=== PATIENT | male | born 1975 | race Caucasian/White ===

== ENCOUNTER 2018-02-24 15:20 | Inpatient (IN) | payer OTHER ==
[2018-02-24 16:51] VITALS: BMI 28.2
[2018-02-24] MEDS ORDERED: MAGNESIUM CITRATE 300 ML BOTTLE PO PRN (18:43)
[2018-02-24] MEDS ORDERED: guaiFENesin/D-METHORPHAN HB 10 ML UNIT-DOSE CUPS PO PRN (18:43)
[2018-02-24] MEDS ORDERED: chlordiazePOXIDE HCL 25 MG CAPSULE PO PRN (18:43)
[2018-02-24] MEDS ORDERED: MAG HYDROX/AL HYDROX/SIMETH 30 ML UNIT-DOSE CUP PO PRN (18:43)
[2018-02-24] MEDS ORDERED: ACETAMINOPHEN 325 MG TABLET (FP) PO PRN (18:43)
[2018-02-24] MEDS ORDERED: chlordiazePOXIDE HCL 25 MG CAPSULE PO ONE (18:43)
[2018-02-24] MEDS ORDERED: P-EPHED 60MG/TRIPROLIDI 2.5MG TABLET PO PRN (18:43)
[2018-02-24] MEDS ORDERED: MENTHOL/PHENOL 1 EACH UD MM PRN (18:43)
[2018-02-24] MEDS ORDERED: hydrOXYzine PAMOATE 50 MG CAPSULE (FP) PO PRN (18:43)
[2018-02-24] MEDS ORDERED: ALBUTEROL SO4 18 GM HFA INHALER IH PRN (18:44)
--- NOTE | 2018-02-24 18:52 | HP ---
CIWA Score - CIWA Score Nausea/Vomitin Muscle Tremors: 3 Anxiety: 3 Agitation: 3 Paroxysmal Sweats: 3 Orientation: 0-Oriented Tacttile Disturbances: 1-Very Mild Itch/Numbness Auditory Disturbances: 0-None Visual Disturbances: 0-None Headache: 1-Very Mild CIWA-Ar Total Score: 17 Admission [facility] Chief Complaint: alcohol withdrawal sx Allergies/Adverse Reactions: Allergies Allergy/AdvReac Type Severity Reaction Status Date / Time chicken derived Allergy Severe Rash Verified 02/24/18 17:31 History of Present Illness: 42 yo m with h/o OUD on MMTP 30mg daily, ldm yesterday confirmed requesting inpatteint detoxficaiton from alcohol reprots alchol withdrwal sx when he does not drink and had alcohol withdrawal seizures 6 months ago. no smoking but also has cocaine dependence. PMHX Hep c+, no treatment, HTN, asthma, bipolar do not taking meds thristyno si at thsi time, no h/o DTS. Exam Limitations: No Limitations - Ebola screening Have you traveled outside of the country in the last 21 days: No Have you had contact with anyone from an Ebola affected area: No Have you been sick,other than usual withdrawal symptoms: No Do you have a fever: No - Review of Systems Constitutional: Chills, Diaphoresis, Night Sweats, Changes in sleep, Unintentional Wgt. Loss EENT: reports: Tearing, Nose Congestion Respiratory: reports: No Symptoms reported Cardiac: reports: No Symptoms Reported GI: reports: No Symptoms Reported : reports: No Symptoms Reported Musculoskeletal: reports: Back Pain, Joint Pain, Muscle Pain Integumentary: reports: Flushing, Sweating Neuro: reports: Headache, Numbness, Tingling, Tremors Endocrine: reports: Increased Thirst Hematology: reports: No Symptoms Reported Psychiatric: reports: Judgement Intact, Mood/Affect Appropiate, Orientated x3, Anxious, Depressed Other Systems: Reviewed and Negative Patient History - Patient Medical History Hx Anemia: No Hx Asthma: Yes (Pt is on MDI.) Hx Chronic Obstructive Pulmonary Disease (COPD): No Hx Cancer: No Hx Cardiac Disorders: No Hx Congestive Heart Failure: No Hx Hypertension: Yes (on meds.) Hx Hypercholesterolemia: No Hx Pacemaker: No HX Cerebrovascular Accident: No Hx Seizures: Yes (etoh related last 6 months ago.) Hx Dementia: No Hx Diabetes: No Hx Gastrointestinal Disorders: No Hx Liver Disease: No Hx Genitourinary Disorders: No Hx Sexually Transmitted Disorders: No Hx Renal Disease (ESRD): No Hx Thyroid Disease: No Hx Human Immunodeficiency Virus (HIV): No Hx Hepatitis C: No Hx Depression: Yes Hx Suicide Attempt: No Hx Schizophrenia: No - Patient Surgical History Past Surgical History: No Hx Neurologic Surgery: No Hx Cataract Extraction: No Hx Cardiac Surgery: No Hx Lung Surgery: No Hx Breast Surgery: No Hx Breast Biopsy: No Hx Abdominal Surgery: No Hx Appendectomy: Yes (20 YRS AGO.) Hx Cholecystectomy: No Hx Genitourinary Surgery: No Hx Section: No Hx Orthopedic Surgery: No Hx Hysterectomy: No Anesthesia Reaction: No - PPD History Previous Implant?: Yes Documented Results: Negative w/o proof Implanted On Prior R Admission?: Yes Date: 10/05/12 PPD to be Administered?: Yes - Reproductive History Patient is a Female of Child Bearing Age (11 -55 yrs old): No Patient : No - Smoking Cessation Smoking history: Never smoked Have you smoked in the past 12 months: No Hx Chewing Tobacco Use: No Initiated information on smoking cessation: No 'Breaking Loose' booklet given: 02/24/18 - Substance & Tx. History Hx Alcohol Use: Yes Hx Substance Use: Yes Substance Use Type: Alcohol, Cocaine, Heroin, Opiates, Prescribed, Tranquilizers Hx Substance Use Treatment: Yes (mmtp, [facility] detox in past) - Substances Abused Alcohol Route: Oral Frequency: Daily Amount used: 1 PINT VODKA Age of first use: 16 Date of Last Use: 02/23/18 Cocaine Route: Injection Frequency: Daily Amount used: 8 BAGS Age of first use: 17 Date of Last Use: 02/24/18 Heroin Route: Injection Frequency: Daily Amount used: 9 BAGS Age of first use: 17 Date of Last Use: 02/24/18 Family Disease History - Family Disease History Family Disease History: Heart Disease: Mother, Other: Father (alcohoic deaf) Admission Physical Exam BHS - Vital Signs Vital Signs: Vital Signs - 24 hr 02/24/18 16:48 Temperature 98.0 F Pulse Rate 70 Respiratory 21 Rate Blood Pressure 140/80 - Physical General Appearance: Yes: No Apparent Distress, Nourished, Appropriately Dressed , Disheveled, Mild Distress, Tremorous, Irritable, Sweating, Anxious HEENTM: Yes: EOMI, Hearing grossly Normal, Normocephalic, Normal Voice, HALLIE, Pharynx Normal Respiratory: Yes: Within Normal Limits, Chest Non-Tender, Lungs Clear, Normal Breath Sounds, No Respiratory Distress, No Accessory Muscle Use Neck: Yes: Within Normal Limits, No masses,lesions,Nodules, Supple, Trachea in good position Breast: Yes: Breast Exam Deferred Cardiology: Yes: Within Normal Limits, Regular Rhythm, Regular Rate, S1, S2 Abdominal: Yes: Within Normal Limits, Normal Bowel Sounds, Non Tender, Flat, Soft, Increased Bowel Sounds Genitourinary: Yes: Within Normal Limits Back: Yes: Muscle Spasm Musculoskeletal: Yes: full range of Motion, Gait Steady, Pelvis Stable, Back pain Extremities: Yes: Normal Capillary Refill, Normal Range of Motion, Non-Tender, Tremors Neurological: Yes: 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, Fully Oriented, Alert, Motor Strength 5/5, Normal Response, Depressed Affect Integumentary: Yes: Normal Color, Warm, Diaphoresis, Moist, Track Fritz (active heroin idu no infection noted, arms) Lymphatic: Yes: Within Normal Limits - Addiitonal Findings: withdrawal sx - Diagnostic (1) Asthma Current Visit: No Status: Active (2) Bipolar disorder Current Visit: No Status: Active (3) Cocaine dependence Current Visit: No Status: Active (4) Essential hypertension Current Visit: No Status: Active (5) Hepatitis C carrier Current Visit: No Status: Active (6) Syncope Current Visit: No Status: Active (7) Weight decreased Current Visit: No Status: Active (8) Opioid dependence on agonist therapy Current Visit: Yes Status: Acute (9) Alcohol dependence with uncomplicated withdrawal Current Visit: Yes Status: Acute (10) Intravenous drug user Current Visit: Yes Status: Acute Cleared for Admission S - Detox or Rehab [facility] Level of Care: Medically Managed Detox Regimen/Protocol: Valium [facility] Breath Alcohol Content Breath Alcohol Content: 0 Urine Drug Screen - Results Drug Screen Negative: No Urine Drug Screen Results: MARIBEL-Cocaine, OPI-Opiates, BZO-Benzodiazepines, MTD- Methadone
[2018-02-24] MEDS ORDERED: diazePAM 5 MG TABLET PO ONE (18:56)
[2018-02-24] MEDS ORDERED: diazePAM 5 MG TABLET PO PRN (18:56)
--- NOTE | 2018-02-24 19:55 | PN ---
[facility] Progress Note Note: Patient did not received his methadone dose today of 30 mg. Dose verify by Neda Bhakta RN with Ms James LPN. Vital Signs Temperature 98.0 F 02/24/18 16:48 Pulse Rate 70 02/24/18 16:48 Respiratory Rate 21 02/24/18 16:48 Blood Pressure 140/80 02/24/18 16:48 O2 Sat by Pulse Oximetry (%) One time dose for today 30mg order Continue to monitor
[2018-02-24] MEDS ORDERED: METHADONE HCL 10 MG TABLET PO ONE (20:00)
[2018-02-24] MEDS: amLODIPine BESYLATE 10 MG TABLET (FP) PO SCH (20:56)
[2018-02-24] MEDS: FERROUS SO4 325 MG TABLET (FP) PO SCH (20:56)
[2018-02-24] MEDS ORDERED: ZOLPIDEM TARTRATE 5 MG TABLET PO SCH (22:00)
[2018-02-24] MEDS ORDERED: MELATONIN 5 MG TABLETS PO PRN (22:00)
[2018-02-24] MEDS: THIAMINE HCL 100 MG TABLET (FP) PO SCH (22:54)
[2018-02-24] MEDS: diazePAM 5 MG TABLET PO SCH (22:55)
[2018-02-24] MEDS ORDERED: chlordiazePOXIDE HCL 25 MG CAPSULE PO SCH (23:00)
[2018-02-24] MEDS: MAGNESIUM OXIDE 400 MG TABLET (FP) PO SCH (23:11)
[2018-02-25] MEDS: MAGNESIUM HYDROX 2400MG/30ML ORAL SUSPENSION 30 ML CUP PO PRN (02:03)
[2018-02-25 05:07] LABS: URINE APPEARANCE CLEAR; URINE BILIRUBIN NEGATIVE (<2.0 mg/dL); URINE BLOOD NEGATIVE (NEGATIVE); URINE COLOR LTYELLOW; URINE GLUCOSE (UA) NEGATIVE (NEGATIVE); URINE KETONE NEGATIVE (NEGATIVE); URINE LEUK ESTERASE NEGATIVE (NEGATIVE); URINE NITRITE NEGATIVE (NEGATIVE); URINE PROTEIN NEGATIVE (NEGATIVE); URINE UROBILINOGEN NEGATIVE mg/dL (0.2-1.0)
[2018-02-25] MEDS: METHADONE HCL 10 MG TABLET PO SCH (05:29)
[2018-02-25] MEDS: diazePAM 5 MG TABLET PO SCH ×3 (05:29→22:23)
[2018-02-25] MEDS: FERROUS SO4 325 MG TABLET (FP) PO SCH ×3 (07:03→17:32)
[2018-02-25] MEDS ORDERED: ZOLPIDEM TARTRATE 10 MG TABLET (PARK CARE ONLY) PO PRN (08:15)
--- NOTE | 2018-02-25 09:03 | CONSULT ---
[facility] Psychiatric Consult - Data Date of interview: 02/25/18 Admission source: [facility] Identifying data: This is 42 yearts old male, , father of three, homeless , unemployed, on SSI seeking detox from Heroin, Cocaine, Alcohol, patient on MMTP 30mg per day as well. Substance Abuse History: Smoking history: Never smoked. Have you smoked in the past 12 months: No. Hx Chewing Tobacco Use: No. Initiated information on smoking cessation: No. 'Breaking Loose' booklet given: 02/24/18. - Substance & Tx. History. Hx Alcohol Use: Yes. Hx Substance Use: Yes. Substance Use Type : Alcohol, Cocaine, Heroin, Opiates, Prescribed, Tranquilizers. Hx Substance Use Treatment: Yes (mmtp, [facility] detox in past). - Substances Abused. Alcohol. Route: Oral. Frequency: Daily. Amount used: 1 PINT VODKA. Age of first use: 16. Date of Last Use: 02/23/18. Cocaine. Route: Injection. Frequency: Daily. Amount used: 8 BAGS. Age of first use: 17. Date of Last Use : 02/24/18. Heroin. Route: Injection. Urine Drug Screen Results: MARIBEL- Cocaine, OPI-Opiates, BZO-Benzodiazepines, MTD-MethadoneFrequency: Daily. Amount used: 9 BAGS. Age of first use: 17. Date of Last Use: 02/24/18 Medical History: Asthma, HTN, HepC+, Weight loss history, Syncope history Psychiatric History: Patient reportsd history of Bipolar disorder, reports most recent psychiatric admission on 2017 at [facility] for safety, reports taking prior to admission: Ambien 10mg po qhs. Seroquel 300mg po qhs. Zyprexa 20mg po qhs. Depakote 500mg po qhs. Patient agrees to tryb Seroquel 150mg po qhs for not to be oversedated. Denies suicidal, homicidal history. Physical/Sexual Abuse/Trauma History: Denies Additional Comment: Urine Drug Screen Results: MARIBEL-Cocaine, OPI-Opiates, BZO- Benzodiazepines, MTD-Methadone Mental Status Exam - Mental Status Exam Alert and Oriented to: Person Cognitive Function: Fair Patient Appearance: Unkempt Mood: Angry Affect: Flat Patient Behavior: Sedated Speech Pattern: Delayed Voice Loudness: Mildly Soft/Quiet Thought Process: Circumstantial Thought Disorder: Being Controlled Hallucinations: Denies Suicidal Ideation: Denies Homicidal Ideation: Denies Insight/Judgement: Fair Sleep: Difficulty falling asleep Appetite: Weight gain Muscle strength/Tone: Mild Hypotonicity Gait/Station: Shuffling Additional Comments: Seroquel 300mg po qhs. Zyprexa 20mg po qhs. Depakote 500mg po qhs Psychiatric Findings - Problem List (Peggs 1, 2,3) (1) Drug-induced mood disorder Current Visit: Yes Status: Acute (2) Alcohol dependence with uncomplicated withdrawal Current Visit: Yes Status: Acute (3) Opioid dependence on agonist therapy Current Visit: Yes Status: Acute (4) Bipolar disorder Current Visit: No Status: Active (5) Cocaine dependence Current Visit: No Status: Active (6) Weight decreased Current Visit: No Status: Active - Initial Treatment Plan Initial Treatment Plan: Seroquel 150mg po qhs. Zyprexa 20mg po qhs. Depakote 500mg po qhs. Depakote blood level
[2018-02-25 10:09] LABS: HEMATOCRIT 34.5 % (35.4-49); HEMOGLOBIN 11.4 GM/dL (11.7-16.9); MCH 26.3 pg (25.7-33.7); MCHC 33.1 g/dl (32.0-35.9); MEAN CELL VOLUME 79.5 fl (80-96); MEAN PLT VOLUME 8.6 fl (7.5-11.1); PLATELET COUNT 212 K/MM3 (134-434); RBC 4.34 M/mm3 (4.00-5.60); RDW 15.9 % (11.9-15.9); WHITE BLOOD COUNT 8.2 K/mm3 (4.0-10.0)
--- NOTE | 2018-02-25 10:13 | PN ---
[facility] CIWA - CIWA Score Nausea/Vomitin-Mild Nausea/No Vomiting Muscle Tremors: 4-Moderate,w/Arms Extend Anxiety: 4-Mod. Anxious/Guarded Agitation: 4-Moderately Restless Paroxysmal Sweats: 1-Minimal Palms Moist Orientation: 0-Oriented Tacttile Disturbances: 0-None Auditory Disturbances: 0-None Visual Disturbances: 0-None Headache: 0-None Present CIWA-Ar Total Score: 14 BHS Progress Note (SOAP) Subjective: tremor sweat anxiety restlessness Objective: 02/25/18 10:14 Vital Signs Temperature 97.9 F 02/25/18 09:42 Pulse Rate 89 02/25/18 09:42 Respiratory Rate 16 02/25/18 09:42 Blood Pressure 137/79 02/25/18 09:42 O2 Sat by Pulse Oximetry (%) Laboratory Last Values WBC 8.2 K/mm3 (4.0-10.0) 02/25/18 07:00 RBC 4.34 M/mm3 (4.00-5.60) 02/25/18 07:00 Hgb 11.4 GM/dL (11.7-16.9) L 02/25/18 07:00 Hct 34.5 % (35.4-49) L 02/25/18 07:00 MCV 79.5 fl (80-96) L 02/25/18 07:00 MCH 26.3 pg (25.7-33.7) 02/25/18 07:00 MCHC 33.1 g/dl (32.0-35.9) 02/25/18 07:00 RDW 15.9 % (11.9-15.9) D 02/25/18 07:00 Plt Count 212 K/MM3 (134-434) D 02/25/18 07:00 MPV 8.6 fl (7.5-11.1) 02/25/18 07:00 Urine Color Ltyellow 02/25/18 00:20 Urine Appearance Clear 02/25/18 00:20 Urine pH 6.0 (5.0-8.0) 02/25/18 00:20 Ur Specific [place] 1.013 (1.001-1.035) 02/25/18 00:20 Urine Protein Negative (NEGATIVE) 02/25/18 00:20 Urine Glucose (UA) Negative (NEGATIVE) 02/25/18 00:20 Urine Ketones Negative (NEGATIVE) 02/25/18 00:20 Urine Blood Negative (NEGATIVE) 02/25/18 00:20 Urine Nitrite Negative (NEGATIVE) 02/25/18 00:20 Urine Bilirubin Negative (<2.0 mg/dL) 02/25/18 00:20 Urine Urobilinogen Negative mg/dL (0.2-1.0) 02/25/18 00:20 Ur Leukocyte Esterase Negative (NEGATIVE) 02/25/18 00:20 lab noted Assessment: 02/25/18 10:14 withdrawal sx Plan: withdrawal sx
[2018-02-25] MEDS: MAGNESIUM OXIDE 400 MG TABLET (FP) PO SCH ×2 (10:39→22:07)
[2018-02-25] MEDS: amLODIPine BESYLATE 10 MG TABLET (FP) PO SCH (10:39)
[2018-02-25] MEDS: PRENATAL VITAMINS W/ FOLIC ACID TABLET (FP) PO SCH (10:39)
[2018-02-25 10:43] LABS: BLOOD UREA NITROGEN 23 mg/dL (7-18); CHLORIDE 104 mmol/L (98-107); POTASSIUM 3.9 mmol/L (3.5-5.1); SODIUM 136 mmol/L (136-145)
[2018-02-25 10:54] LABS: ALBUMIN 3.7 g/dl (3.4-5.0); ALK PHOS 87 U/L (45-117); ANION GAP 3 (8-16); BILIRUBIN,TOTAL 0.2 mg/dL (0.2-1.0); CALCIUM 8.9 mg/dL (8.5-10.1); CO2 29 mmol/L (21-32); CREATININE 1.2 mg/dL (0.7-1.3); GLUCOSE,RANDOM 117 mg/dL (74-106); SGOT/AST 39 U/L (15-37); SGPT/ALT 47 U/L (12-78); TOT PROT 7.2 g/dl (6.4-8.2)
--- NOTE | 2018-02-25 13:06 | EKG ---
Test Reason : Blood Pressure : / mmHG Vent. Rate : 081 BPM Atrial Rate : 081 BPM P-R Int : 160 ms QRS Dur : 098 ms QT Int : 392 ms P-R-T Axes : 064 070 032 degrees QTc Int : 455 ms NORMAL SINUS RHYTHM NONSPECIFIC T WAVE ABNORMALITY ABNORMAL ECG NO PREVIOUS ECGS AVAILABLE Confirmed by RYLEE BRAMBILA MD ([id number]) on 02/25/2018 1:06:23 PM Referred By: Confirmed By:RYLEE BRAMBILA MD
--- NOTE | 2018-02-25 17:44 | PN ---
[facility] Progress Note Note: Psychiatric nurse practitioner note: Newspaper Photojournalist received called from RN concerning patient's oversedation on the unit. Pt. appears lethargic, observed sleeping on the nurses station, on chairs, unable to keep eyes open and taking enviromental cleaning products into his room. Ammonia level ordered, results- 39.25. Psychotropic medications reviewed. Dr. Banda's note read and appreciated. Patient was ordered Depakote 500mg qhs + Seroquel 150mg qhs + Zyprexa 20mg qhs. Seroquel dose was already titrated downwards but will be lowered again due to patient's oversedation. Medications to be decreased to the following doses: Depakote 250mg qhs + seroquel 50mg + zyprexa 5mg qhs to be ordered. Nurses informed of decrease of medication. Medication to be titrated upwards depending on patient' s response to current medications. Will continue to monitor.
[2018-02-25] MEDS ORDERED: BENZOCAINE 28 GM HEMORRHOIDAL OINTMENT PR PRN (18:17)
[2018-02-25] MEDS: LACTULOSE 20 GM/30 ML UDC (FOR ORAL USE ONLY) PO PRN (18:59)
[2018-02-25] MEDS ORDERED: DIVALPROEX SODIUM 500 MG TABLET E.C. PO SCH ×2 (22:00)
[2018-02-25] MEDS ORDERED: OLANZapine 10 MG TABLET PO SCH ×2 (22:00)
[2018-02-25] MEDS ORDERED: QUEtiapine FUMARATE 50 MG TABLET PO SCH ×2 (22:00)
[2018-02-25] MEDS ORDERED: QUEtiapine FUMARATE 300 MG TABLET PO SCH (22:00)
[2018-02-25] MEDS ORDERED: OLANZapine 5 MG TABLET PO SCH (22:06)
[2018-02-25] MEDS: DIVALPROEX SODIUM 250 MG TABLET E.C. PO SCH (22:07)
[2018-02-25] MEDS: THIAMINE HCL 100 MG TABLET (FP) PO SCH (22:07)
[2018-02-25] MEDS ORDERED: chlordiazePOXIDE HCL 25 MG CAPSULE PO SCH (23:00)
[2018-02-26] MEDS: LOPERAMIDE HCL 2 MG CAPSULE PO PRN (01:50)
[2018-02-26] MEDS: IBUPROFEN 400 MG TABLET (FP) PO PRN ×2 (03:11→19:54)
[2018-02-26] MEDS: METHADONE HCL 10 MG TABLET PO SCH (05:18)
[2018-02-26] MEDS ORDERED: cloNIDine HCL 0.1 MG TABLET PO ONE (06:44)
[2018-02-26] MEDS: FERROUS SO4 325 MG TABLET (FP) PO SCH ×3 (07:28→17:48)
--- NOTE | 2018-02-26 07:53 | PN ---
[facility] Progress Note Note: Patient's blood pressure this morning is B/P 170/99. Patient is asymptomatic. Vital Signs Temperature 97.9 F 02/26/18 06:12 Pulse Rate 83 02/26/18 06:12 Respiratory Rate 18 02/26/18 06:12 Blood Pressure 170/99 02/26/18 06:12 O2 Sat by Pulse Oximetry (%) Action: Clonidine 0.1mg tablet oral
[2018-02-26] MEDS: LACTULOSE 20 GM/30 ML UDC (FOR ORAL USE ONLY) PO PRN (10:00)
--- NOTE | 2018-02-26 10:00 | PN ---
S CIWA - CIWA Score Nausea/Vomitin Muscle Tremors: 2 Anxiety: 3 Agitation: 3 Paroxysmal Sweats: 1-Minimal Palms Moist Orientation: 0-Oriented Tacttile Disturbances: 1-Very Mild Itch/Numbness Auditory Disturbances: 1-Very Mild Visual Disturbances: 0-None Headache: 2-Mild CIWA-Ar Total Score: 16 S Progress Note (SOAP) Subjective: ALERT,CONFUSED AT TIME,DROWSY, Objective: 02/26/18 09:57 Vital Signs Temperature 97.9 F 02/26/18 06:12 Pulse Rate 83 02/26/18 06:12 Respiratory Rate 18 02/26/18 06:12 Blood Pressure 170/99 02/26/18 06:12 O2 Sat by Pulse Oximetry (%) Laboratory Last Values WBC 8.2 K/mm3 (4.0-10.0) 02/25/18 07:00 RBC 4.34 M/mm3 (4.00-5.60) 02/25/18 07:00 Hgb 11.4 GM/dL (11.7-16.9) L 02/25/18 07:00 Hct 34.5 % (35.4-49) L 02/25/18 07:00 MCV 79.5 fl (80-96) L 02/25/18 07:00 MCH 26.3 pg (25.7-33.7) 02/25/18 07:00 MCHC 33.1 g/dl (32.0-35.9) 02/25/18 07:00 RDW 15.9 % (11.9-15.9) D 02/25/18 07:00 Plt Count 212 K/MM3 (134-434) D 02/25/18 07:00 MPV 8.6 fl (7.5-11.1) 02/25/18 07:00 Sodium 136 mmol/L (136-145) 02/25/18 07:00 Potassium 3.9 mmol/L (3.5-5.1) 02/25/18 07:00 Chloride 104 mmol/L (98-107) 02/25/18 07:00 Carbon Dioxide 29 mmol/L (21-32) 02/25/18 07:00 Anion Gap 3 (8-16) L 02/25/18 07:00 BUN 23 mg/dL (7-18) H D 02/25/18 07:00 Creatinine 1.2 mg/dL (0.7-1.3) D 02/25/18 07:00 Creat Clearance w eGFR > 60 (>60) 02/25/18 07:00 Random Glucose 117 mg/dL (74-106) H 02/25/18 07:00 Calcium 8.9 mg/dL (8.5-10.1) 02/25/18 07:00 Total Bilirubin 0.2 mg/dL (0.2-1.0) D 02/25/18 07:00 AST 39 U/L (15-37) H D 02/25/18 07:00 ALT 47 U/L (12-78) 02/25/18 07:00 Alkaline Phosphatase 87 U/L (45-117) D 02/25/18 07:00 Ammonia 39.25 umol/L (11-32) H 02/25/18 14:55 Total Protein 7.2 g/dl (6.4-8.2) 02/25/18 07:00 Albumin 3.7 g/dl (3.4-5.0) 02/25/18 07:00 Urine Color Ltyellow 02/25/18 00:20 Urine Appearance Clear 02/25/18 00:20 Urine pH 6.0 (5.0-8.0) 02/25/18 00:20 Ur Specific [place] 1.013 (1.001-1.035) 02/25/18 00:20 Urine Protein Negative (NEGATIVE) 02/25/18 00:20 Urine Glucose (UA) Negative (NEGATIVE) 02/25/18 00:20 Urine Ketones Negative (NEGATIVE) 02/25/18 00:20 Urine Blood Negative (NEGATIVE) 02/25/18 00:20 Urine Nitrite Negative (NEGATIVE) 02/25/18 00:20 Urine Bilirubin Negative (<2.0 mg/dL) 02/25/18 00:20 Urine Urobilinogen Negative mg/dL (0.2-1.0) 02/25/18 00:20 Ur Leukocyte Esterase Negative (NEGATIVE) 02/25/18 00:20 HIV 1&2 Antibody Screen Negative 02/25/18 07:00 HIV P24 Antigen Negative 02/25/18 07:00 Assessment: 02/26/18 09:58 WITHDRAWAL SYMPTOM Plan: CONTINUE DETOX,DYAZIDE 1 CAP PO DAILY,ENCOURAGE ORAL FLUID,LACULOSE 20 GRAMS PO TID,CLOSE MONITORING,ENCOURAGE ORAL FLUID
[2018-02-26] MEDS: PRENATAL VITAMINS W/ FOLIC ACID TABLET (FP) PO SCH (10:22)
[2018-02-26] MEDS: amLODIPine BESYLATE 10 MG TABLET (FP) PO SCH (10:22)
[2018-02-26] MEDS: MAGNESIUM OXIDE 400 MG TABLET (FP) PO SCH ×2 (10:23→22:24)
[2018-02-26] MEDS: TRIAMTERENE AND HCTZ - 37.5 MG/25 MG CAPSULE PO SCH (10:24)
[2018-02-26] MEDS: diazePAM 5 MG TABLET PO SCH ×2 (11:42→22:33)
[2018-02-26] MEDS: MAGNESIUM HYDROX 2400MG/30ML ORAL SUSPENSION 30 ML CUP PO PRN (12:15)
[2018-02-26] MEDS ORDERED: LIDOCAINE VISCOUS 2% ORAL/TOP 20 ML UNIT-DOSE CUP MM PRN (15:14)
--- NOTE | 2018-02-26 15:16 | PN ---
[facility] Progress Note Note: TOOTHACHE,XYLOAINE VISCOUS 20 MLS PRN Q 4HRS
[2018-02-26] MEDS: QUEtiapine FUMARATE 25 MG TABLET (FP) PO SCH (22:24)
[2018-02-26] MEDS: THIAMINE HCL 100 MG TABLET (FP) PO SCH (22:24)
[2018-02-26] MEDS: DIVALPROEX SODIUM 250 MG TABLET E.C. PO SCH (22:24)
[2018-02-26] MEDS ORDERED: chlordiazePOXIDE 5 MG CAPSULE PO SCH (23:00)
[2018-02-27] MEDS: IBUPROFEN 400 MG TABLET (FP) PO PRN (07:00)
[2018-02-27] MEDS: FERROUS SO4 325 MG TABLET (FP) PO SCH ×3 (08:22→17:26)
--- NOTE | 2018-02-27 10:18 | PN ---
[facility] Progress Note Note: Psychiatric nurse practitioner: Pt. alert and oriented X3 this morning. Medications decreased on 02/25/18 due to patient's lethargic appearance. Today patient appears brighter and observed ambulating on unit without any difficulty although patient continues to ask for additional medication. Ammonia level on was 39.25 . Ammonia level reordered on 02/27 and result: 51.30. Pt. remains alert and oriented and at the moment is coherent and able to follow directions from staff but due to increase in Ammonia level patient's medications will not be increased. Nurses informed of decision. Will continue to monitor.
--- NOTE | 2018-02-27 10:28 | PN ---
[facility] Progress Note (SOAP) Subjective: ALERT,PAIN IN THE BACK,INTERRUPTED SLEEP,LESS CONFUSED Objective: 02/27/18 10:26 Vital Signs Temperature 96.8 F L 02/27/18 10:21 Pulse Rate 97 H 02/27/18 10:21 Respiratory Rate 19 02/27/18 10:21 Blood Pressure 174/93 02/27/18 10:21 O2 Sat by Pulse Oximetry (%) Assessment: 02/27/18 10:27 WITHDRAWAL SYMPTOM Plan: CONTINUE DETOX,BLOOD FOR AMMONIA LEVEL TODAY,PSYCHIATRIC REEVALUATION
[2018-02-27] MEDS: TRIAMTERENE AND HCTZ - 37.5 MG/25 MG CAPSULE PO SCH (10:45)
[2018-02-27] MEDS: amLODIPine BESYLATE 10 MG TABLET (FP) PO SCH (10:45)
[2018-02-27] MEDS: cloNIDine HCL 0.1 MG TABLET PO SCH ×2 (10:45→22:22)
[2018-02-27] MEDS: MAGNESIUM OXIDE 400 MG TABLET (FP) PO SCH ×2 (10:45→22:22)
[2018-02-27] MEDS: PRENATAL VITAMINS W/ FOLIC ACID TABLET (FP) PO SCH (10:45)
[2018-02-27] MEDS: METHADONE HCL 10 MG TABLET PO SCH (10:47)
[2018-02-27] MEDS: diazePAM 5 MG TABLET PO SCH ×2 (10:49→22:55)
[2018-02-27] MEDS ORDERED: LACTULOSE 20 GM/30 ML UDC (FOR ORAL USE ONLY) PO ONE (17:15)
[2018-02-27] MEDS: THIAMINE HCL 100 MG TABLET (FP) PO SCH (22:22)
[2018-02-27] MEDS: OLANZapine 10 MG TABLET PO SCH (22:22)
[2018-02-27] MEDS: QUEtiapine FUMARATE 25 MG TABLET (FP) PO SCH (22:22)
[2018-02-27] MEDS: DIVALPROEX SODIUM 250 MG TABLET E.C. PO SCH (22:22)
[2018-02-27] MEDS: LACTULOSE 20 GM/30 ML UDC (FOR ORAL USE ONLY) PO SCH (22:55)
[2018-02-27] MEDS ORDERED: chlordiazePOXIDE HCL 10 MG CAPSULE PO SCH (23:00)
[2018-02-28] MEDS: IBUPROFEN 400 MG TABLET (FP) PO PRN ×2 (00:06→23:30)
[2018-02-28] MEDS: FERROUS SO4 325 MG TABLET (FP) PO SCH ×3 (07:28→17:43)
[2018-02-28] MEDS ORDERED: diazePAM 5 MG TABLET PO SCH (10:00)
[2018-02-28] MEDS: LACTULOSE 20 GM/30 ML UDC (FOR ORAL USE ONLY) PO SCH ×2 (10:18→22:12)
[2018-02-28] MEDS: amLODIPine BESYLATE 10 MG TABLET (FP) PO SCH (10:18)
[2018-02-28] MEDS: MAGNESIUM OXIDE 400 MG TABLET (FP) PO SCH ×2 (10:18→22:12)
[2018-02-28] MEDS: PRENATAL VITAMINS W/ FOLIC ACID TABLET (FP) PO SCH (10:18)
[2018-02-28] MEDS: cloNIDine HCL 0.1 MG TABLET PO SCH ×2 (10:18→22:12)
[2018-02-28] MEDS: TRIAMTERENE AND HCTZ - 37.5 MG/25 MG CAPSULE PO SCH (10:18)
[2018-02-28] MEDS: METHADONE HCL 10 MG TABLET PO SCH (10:19)
--- NOTE | 2018-02-28 15:56 | PN ---
[facility] Progress Note (SOAP) Subjective: Irritability, sleep interruption, restlessness Objective: 02/28/18 15:54 Vital Signs - 8 hr 02/28/18 02/28/18 10:00 15:10 Temperature 96.3 F L 97.7 F Pulse Rate 97 H 98 H Respiratory 20 18 Rate Blood Pressure 139/80 154/85 Laboratory Last Values WBC 8.2 K/mm3 (4.0-10.0) 02/25/18 07:00 RBC 4.34 M/mm3 (4.00-5.60) 02/25/18 07:00 Hgb 11.4 GM/dL (11.7-16.9) L 02/25/18 07:00 Hct 34.5 % (35.4-49) L 02/25/18 07:00 MCV 79.5 fl (80-96) L 02/25/18 07:00 MCH 26.3 pg (25.7-33.7) 02/25/18 07:00 MCHC 33.1 g/dl (32.0-35.9) 02/25/18 07:00 RDW 15.9 % (11.9-15.9) D 02/25/18 07:00 Plt Count 212 K/MM3 (134-434) D 02/25/18 07:00 MPV 8.6 fl (7.5-11.1) 02/25/18 07:00 Sodium 136 mmol/L (136-145) 02/25/18 07:00 Potassium 3.9 mmol/L (3.5-5.1) 02/25/18 07:00 Chloride 104 mmol/L (98-107) 02/25/18 07:00 Carbon Dioxide 29 mmol/L (21-32) 02/25/18 07:00 Anion Gap 3 (8-16) L 02/25/18 07:00 BUN 23 mg/dL (7-18) H D 02/25/18 07:00 Creatinine 1.2 mg/dL (0.7-1.3) D 02/25/18 07:00 Creat Clearance w eGFR > 60 (>60) 02/25/18 07:00 Random Glucose 117 mg/dL (74-106) H 02/25/18 07:00 Calcium 8.9 mg/dL (8.5-10.1) 02/25/18 07:00 Total Bilirubin 0.2 mg/dL (0.2-1.0) D 02/25/18 07:00 AST 39 U/L (15-37) H D 02/25/18 07:00 ALT 47 U/L (12-78) 02/25/18 07:00 Alkaline Phosphatase 87 U/L (45-117) D 02/25/18 07:00 Ammonia 51.30 umol/L (11-32) H 02/27/18 11:30 Total Protein 7.2 g/dl (6.4-8.2) 02/25/18 07:00 Albumin 3.7 g/dl (3.4-5.0) 02/25/18 07:00 Urine Color Ltyellow 02/25/18 00:20 Urine Appearance Clear 02/25/18 00:20 Urine pH 6.0 (5.0-8.0) 02/25/18 00:20 Ur Specific [place] 1.013 (1.001-1.035) 02/25/18 00:20 Urine Protein Negative (NEGATIVE) 02/25/18 00:20 Urine Glucose (UA) Negative (NEGATIVE) 02/25/18 00:20 Urine Ketones Negative (NEGATIVE) 02/25/18 00:20 Urine Blood Negative (NEGATIVE) 02/25/18 00:20 Urine Nitrite Negative (NEGATIVE) 02/25/18 00:20 Urine Bilirubin Negative (<2.0 mg/dL) 02/25/18 00:20 Urine Urobilinogen Negative mg/dL (0.2-1.0) 02/25/18 00:20 Ur Leukocyte Esterase Negative (NEGATIVE) 02/25/18 00:20 Valproic Acid 20.532 ug/ml (50-100) L 02/26/18 07:00 RPR Titer Nonreactive (NONREACTIVE) 02/25/18 07:00 HIV 1&2 Antibody Screen Negative 02/25/18 07:00 HIV P24 Antigen Negative 02/25/18 07:00 Labs noted, ammonia increased to 51.30 Assessment: 02/28/18 15:55 Withdrawal sx Plan: Continue to monitor Repeat ammonia level on 03/01
[2018-02-28] MEDS: LOPERAMIDE HCL 2 MG CAPSULE PO PRN (17:44)
[2018-02-28] MEDS: THIAMINE HCL 100 MG TABLET (FP) PO SCH (22:11)
[2018-02-28] MEDS: QUEtiapine FUMARATE 25 MG TABLET (FP) PO SCH (22:12)
[2018-02-28] MEDS: OLANZapine 10 MG TABLET PO SCH (22:12)
[2018-02-28] MEDS: DIVALPROEX SODIUM 250 MG TABLET E.C. PO SCH (22:12)
[2018-03-01] MEDS: FERROUS SO4 325 MG TABLET (FP) PO SCH ×3 (07:38→17:51)
--- NOTE | 2018-03-01 10:13 | PN ---
S Progress Note (SOAP) Subjective: itching feet feet swell x "long time" Objective: 03/01/18 10:16 rashes noted on both feet 03/01/18 10:18 both feet swell +1 pitty edema skin intact no lump no lesion nail bed none tenderness ambulating on [address] 03/01/18 15:32 03/01/18 15:36 no shortness of breath no trouble breathing Assessment: 03/01/18 10:17 dermatitis 03/01/18 15:37 fluid volume overload Plan: hydrocortison cream elevation of both feet lasix 20 mg x 1 now continue monitoring
[2018-03-01] MEDS: LACTULOSE 20 GM/30 ML UDC (FOR ORAL USE ONLY) PO SCH ×3 (11:07→22:38)
[2018-03-01] MEDS: METHADONE HCL 10 MG TABLET PO SCH (11:07)
[2018-03-01] MEDS: amLODIPine BESYLATE 10 MG TABLET (FP) PO SCH (11:08)
[2018-03-01] MEDS: PRENATAL VITAMINS W/ FOLIC ACID TABLET (FP) PO SCH (11:08)
[2018-03-01] MEDS: MAGNESIUM OXIDE 400 MG TABLET (FP) PO SCH ×2 (11:08→23:14)
[2018-03-01] MEDS: TRIAMTERENE AND HCTZ - 37.5 MG/25 MG CAPSULE PO SCH (11:08)
[2018-03-01] MEDS: cloNIDine HCL 0.1 MG TABLET PO SCH ×2 (11:08→22:39)
[2018-03-01] MEDS: HYDROCORTISONE 1% TOPICAL CREAM 30 GM TUBE TP SCH ×3 (15:05→23:11)
[2018-03-01] MEDS ORDERED: FUROSEMIDE 20 MG TABLET (FP) PO ONE (15:15)
--- NOTE | 2018-03-01 16:28 | EKG ---
Test Reason : Blood Pressure : / mmHG Vent. Rate : 091 BPM Atrial Rate : 091 BPM P-R Int : 162 ms QRS Dur : 096 ms QT Int : 346 ms P-R-T Axes : 058 064 020 degrees QTc Int : 425 ms NORMAL SINUS RHYTHM POSSIBLE LEFT ATRIAL ENLARGEMENT BORDERLINE ECG WHEN COMPARED WITH ECG OF 24-FEB-2018 20:28, NO SIGNIFICANT CHANGE WAS FOUND Confirmed by RYLEE BRAMBILA MD ([id number]) on 03/01/2018 4:27:24 PM Referred By: Confirmed By:RYLEE BRAMBILA MD
[2018-03-01] MEDS: IBUPROFEN 400 MG TABLET (FP) PO PRN (19:25)
[2018-03-01] MEDS: THIAMINE HCL 100 MG TABLET (FP) PO SCH (22:38)
[2018-03-01] MEDS: QUEtiapine FUMARATE 25 MG TABLET (FP) PO SCH (22:39)
[2018-03-01] MEDS: DIVALPROEX SODIUM 250 MG TABLET E.C. PO SCH (22:39)
[2018-03-01] MEDS: OLANZapine 10 MG TABLET PO SCH (22:39)
[2018-03-02] MEDS: IBUPROFEN 400 MG TABLET (FP) PO PRN (06:00)
[2018-03-02] MEDS: FERROUS SO4 325 MG TABLET (FP) PO SCH ×3 (07:48→17:46)
--- NOTE | 2018-03-02 09:03 | PN ---
[facility] Progress Note (SOAP) Subjective: ALERT,NO COMPLAINT,ORIENTED X3 Objective: 03/02/18 08:59 Vital Signs Temperature 98.2 F 03/02/18 06:10 Pulse Rate 83 03/02/18 06:10 Respiratory Rate 18 03/02/18 06:10 Blood Pressure 116/87 03/02/18 06:10 O2 Sat by Pulse Oximetry (%) DETOX HAS BEEN COMPLETED,HAD ELEVATION OF AMMONIA LEVEL,LAST 54.23,TREATED WITH LACTULOSE 20 GRRAMS PO QID Laboratory Last Values WBC 8.2 K/mm3 (4.0-10.0) 02/25/18 07:00 RBC 4.34 M/mm3 (4.00-5.60) 02/25/18 07:00 Hgb 11.4 GM/dL (11.7-16.9) L 02/25/18 07:00 Hct 34.5 % (35.4-49) L 02/25/18 07:00 MCV 79.5 fl (80-96) L 02/25/18 07:00 MCH 26.3 pg (25.7-33.7) 02/25/18 07:00 MCHC 33.1 g/dl (32.0-35.9) 02/25/18 07:00 RDW 15.9 % (11.9-15.9) D 02/25/18 07:00 Plt Count 212 K/MM3 (134-434) D 02/25/18 07:00 MPV 8.6 fl (7.5-11.1) 02/25/18 07:00 Sodium 136 mmol/L (136-145) 02/25/18 07:00 Potassium 3.9 mmol/L (3.5-5.1) 02/25/18 07:00 Chloride 104 mmol/L (98-107) 02/25/18 07:00 Carbon Dioxide 29 mmol/L (21-32) 02/25/18 07:00 Anion Gap 3 (8-16) L 02/25/18 07:00 BUN 23 mg/dL (7-18) H D 02/25/18 07:00 Creatinine 1.2 mg/dL (0.7-1.3) D 02/25/18 07:00 Creat Clearance w eGFR > 60 (>60) 02/25/18 07:00 Random Glucose 117 mg/dL (74-106) H 02/25/18 07:00 Calcium 8.9 mg/dL (8.5-10.1) 02/25/18 07:00 Total Bilirubin 0.2 mg/dL (0.2-1.0) D 02/25/18 07:00 AST 39 U/L (15-37) H D 02/25/18 07:00 ALT 47 U/L (12-78) 02/25/18 07:00 Alkaline Phosphatase 87 U/L (45-117) D 02/25/18 07:00 Ammonia 54.23 umol/L (11-32) H 03/01/18 07:30 Total Protein 7.2 g/dl (6.4-8.2) 02/25/18 07:00 Albumin 3.7 g/dl (3.4-5.0) 02/25/18 07:00 Urine Color Ltyellow 02/25/18 00:20 Urine Appearance Clear 02/25/18 00:20 Urine pH 6.0 (5.0-8.0) 02/25/18 00:20 Ur Specific [place] 1.013 (1.001-1.035) 02/25/18 00:20 Urine Protein Negative (NEGATIVE) 02/25/18 00:20 Urine Glucose (UA) Negative (NEGATIVE) 02/25/18 00:20 Urine Ketones Negative (NEGATIVE) 02/25/18 00:20 Urine Blood Negative (NEGATIVE) 02/25/18 00:20 Urine Nitrite Negative (NEGATIVE) 02/25/18 00:20 Urine Bilirubin Negative (<2.0 mg/dL) 02/25/18 00:20 Urine Urobilinogen Negative mg/dL (0.2-1.0) 02/25/18 00:20 Ur Leukocyte Esterase Negative (NEGATIVE) 02/25/18 00:20 Valproic Acid 20.532 ug/ml (50-100) L 02/26/18 07:00 RPR Titer Nonreactive (NONREACTIVE) 02/25/18 07:00 HIV 1&2 Antibody Screen Negative 02/25/18 07:00 HIV P24 Antigen Negative 02/25/18 07:00 Assessment: 03/02/18 09:03 MEDICALLY STABLE FOR DISCHARGE Plan: FOLLOW UP WITH AFTER CARE PROGRAM ARRANGEMENT
--- NOTE | 2018-03-02 09:11 | DS ---
[facility] Detox Discharge Summary Admission Date: 02/24/18 Discharge Date: 03/02/18 - History Present History: Alcohol Dependence, Cocaine Dependence, MMTP Additional Comments: FOLLOW UP WITH AFTER CARE PROGRAM ARRANGEMENT Pertinent Past History: ASTHMA ESSENTIAL HYPERTENSION HEPATITS C IV DRUGS USER WEIGHT DECREASED BIPOLAR DISORDER - Physical Exam Results Vital Signs: Vital Signs Temperature 98.2 F 03/02/18 06:10 Pulse Rate 83 03/02/18 06:10 Respiratory Rate 18 03/02/18 06:10 Blood Pressure 116/87 03/02/18 06:10 O2 Sat by Pulse Oximetry (%) Pertinent Admission Physical Exam Findings: WITHDRAWAL SIGNS ANS SYMPTOM - Treatment Hospital Course: Detox Protocol Followed, Detoxed Safely, Responded well, Discharged Condition Good, Rehab Referral Accepted Patient has Accepted a Rehab Referral to: [facility] - Medication Discharge Medications: Ambulatory Orders Divalproex [Depakote -] 500 mg PO HS #30 tablet.ec 02/25/18 Olanzapine [ZyPREXA -] 20 mg PO HS #20 tablet 02/25/18 Quetiapine Fumarate [Seroquel -] 300 mg PO HS #30 tablet 02/25/18 Albuterol Sulfate Inhaler - [Ventolin HFA Inhaler -] 1 - 2 inh IH Q4H PRN #1 inhaler 02/27/18 Amlodipine Besylate [Norvasc -] 10 mg PO DAILY #30 tablet 02/27/18 - Diagnosis (1) Alcohol dependence with uncomplicated withdrawal Current Visit: Yes Status: Acute (2) Serum ammonia increased Current Visit: Yes Status: Acute (3) Intravenous drug user Current Visit: Yes Status: Acute (4) Opioid dependence on agonist therapy Current Visit: Yes Status: Acute (5) Asthma Current Visit: No Status: Active (6) Bipolar disorder Current Visit: No Status: Active (7) Essential hypertension Current Visit: No Status: Active (8) Hepatitis C carrier Current Visit: No Status: Active (9) Syncope Current Visit: No Status: Active (10) Weight decreased Current Visit: No Status: Active - AMA Did Patient Leave Against Medical Advice: No
[2018-03-02] MEDS: PRENATAL VITAMINS W/ FOLIC ACID TABLET (FP) PO SCH (10:25)
[2018-03-02] MEDS: cloNIDine HCL 0.1 MG TABLET PO SCH (10:25)
[2018-03-02] MEDS: MAGNESIUM OXIDE 400 MG TABLET (FP) PO SCH (10:25)
[2018-03-02] MEDS: amLODIPine BESYLATE 10 MG TABLET (FP) PO SCH (10:25)
[2018-03-02] MEDS: TRIAMTERENE AND HCTZ - 37.5 MG/25 MG CAPSULE PO SCH (10:25)
[2018-03-02] MEDS: LACTULOSE 20 GM/30 ML UDC (FOR ORAL USE ONLY) PO SCH ×2 (10:26→13:35)
[2018-03-02] MEDS: METHADONE HCL 10 MG TABLET PO SCH (10:27)
[2018-03-02] MEDS: HYDROCORTISONE 1% TOPICAL CREAM 30 GM TUBE TP SCH ×2 (10:31→13:33)
[2018-03-02 13:58] VITALS: BP 136/81; PULSE 91; TEMP 98.1
--- NOTE | 2018-03-02 14:44 | PN ---
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
== END 2018-03-02 17:17 | disposition home or self-care (01) | DRG 773 ==
LOC: YASAS 15:20 → Y6N 17:57
PROVIDERS: ADMIT Internal Medicine; ATTEND Internal Medicine
PROC: HZ2ZZZZ Detoxification Services for Substance Abuse Treatment (ICD-10-PCS; principal; 2018-02-24)
DX: F11.20 Opioid dependence, uncomplicated (principal); F10.230 Alcohol dependence with withdrawal, uncomplicated; F14.20 Cocaine dependence, uncomplicated; F31.9 Bipolar disorder, unspecified; B18.2 Chronic viral hepatitis C; I10 Essential (primary) hypertension; J45.909 Unspecified asthma, uncomplicated; E72.20 Disorder of urea cycle metabolism, unspecified; R55 Syncope and collapse; Z86.69 Personal history of other diseases of the nervous system and sense organs; R63.4 Abnormal weight loss; Z68.28 Body mass index [BMI] 28.0-28.9, adult
CPT/HCPCS: 36415; 71045-TC-FY; 80053; 80164; 81003; 82140; 85027; 86593; 87389; 93005; 93010; J0735

== ENCOUNTER 2018-03-04 14:49 | Inpatient (IN) | payer OTHER ==
[2018-03-04 15:57] VITALS: BMI 30.7
--- NOTE | 2018-03-04 16:06 | HP ---
[facility] Rehab Assess/Revision - Admission History Admitted to Rehab from: [facility] Date of Admission to Rehab: 03/04/2018 - Vital signs Vital Signs: Vital Signs Period Temp Pulse Resp BP Sys/Benavides Pulse Ox Last 24 Hr 97.1 F 110 20 162/86 - Findings Detox History & Physical reviewed: Yes Concur with findings: Yes (used small amount cocaien and heroin, but no alcohol) Inpatient Rehab Admission - Initial Determination Are CD services needed?: Yes Free of communicable disease: Yes Not in need of hospitalization: Yes - Rehab Admission Criteria Previous failed treatment: Yes Lacks judgement: Yes Patient is meeting Inpatient Rehab admission criteria:: Yes (was not medicated today at [facility] 0mg dialy ldm 03/03/2018)
[2018-03-04] MEDS ORDERED: ACETAMINOPHEN 325 MG TABLET (FP) PO PRN (16:07)
[2018-03-04] MEDS ORDERED: LOPERAMIDE HCL 2 MG CAPSULE PO PRN (16:07)
[2018-03-04] MEDS ORDERED: MAGNESIUM HYDROX 2400MG/30ML ORAL SUSPENSION 30 ML CUP PO PRN (16:07)
[2018-03-04] MEDS ORDERED: P-EPHED 60MG/TRIPROLIDI 2.5MG TABLET PO PRN (16:07)
[2018-03-04] MEDS ORDERED: MAG HYDROX/AL HYDROX/SIMETH 30 ML UNIT-DOSE CUP PO PRN (16:07)
[2018-03-04] MEDS ORDERED: guaiFENesin/D-METHORPHAN HB 10 ML UNIT-DOSE CUPS PO PRN (16:07)
[2018-03-04] MEDS ORDERED: MAGNESIUM CITRATE 300 ML BOTTLE PO PRN (16:07)
[2018-03-04] MEDS ORDERED: hydrOXYzine PAMOATE 50 MG CAPSULE (FP) PO PRN (16:07)
[2018-03-04] MEDS ORDERED: ALBUTEROL SO4 18 GM HFA INHALER IH PRN (16:07)
[2018-03-04] MEDS ORDERED: MENTHOL/PHENOL 1 EACH UD MM PRN (16:07)
[2018-03-04] MEDS: LACTULOSE 20 GM/30 ML UDC (FOR ORAL USE ONLY) PO SCH ×2 (18:22→22:05)
[2018-03-04] MEDS: amLODIPine BESYLATE 10 MG TABLET (FP) PO SCH (18:22)
[2018-03-04] MEDS: METHADONE HCL 10 MG TABLET PO SCH (18:22)
[2018-03-04] MEDS: TRIAMTERENE AND HCTZ - 37.5 MG/25 MG CAPSULE PO SCH (18:22)
[2018-03-04] MEDS ORDERED: MELATONIN 5 MG TABLETS PO PRN (22:00)
[2018-03-04] MEDS: THIAMINE HCL 100 MG TABLET (FP) PO SCH (22:05)
[2018-03-05] MEDS: METHADONE HCL 10 MG TABLET PO SCH (06:45)
[2018-03-05 09:59] LABS: BASO % 0.3 % (0-2.0); EOS % 1.3 % (0-4.5); HEMATOCRIT 34.2 % (35.4-49); HEMOGLOBIN 11.2 GM/dL (11.7-16.9); LYMPH % 20.2 % (8-40); MCH 26.5 pg (25.7-33.7); MCHC 32.8 g/dl (32.0-35.9); MEAN PLT VOLUME 8.9 fl (7.5-11.1); MONO % 3.5 % (3.8-10.2); NEUT % 74.7 % (42.8-82.8); PLATELET COUNT 187 K/MM3 (134-434); RBC 4.22 M/mm3 (4.00-5.60); RDW 16.6 % (11.9-15.9); WHITE BLOOD COUNT 9.7 K/mm3 (4.0-10.0)
[2018-03-05] MEDS: LACTULOSE 20 GM/30 ML UDC (FOR ORAL USE ONLY) PO SCH ×4 (10:12→21:44)
[2018-03-05] MEDS: amLODIPine BESYLATE 10 MG TABLET (FP) PO SCH (10:13)
[2018-03-05] MEDS: PRENATAL VITAMINS W/ FOLIC ACID TABLET (FP) PO SCH (10:13)
[2018-03-05] MEDS: TRIAMTERENE AND HCTZ - 37.5 MG/25 MG CAPSULE PO SCH (10:13)
[2018-03-05 10:25] LABS: CHLORIDE 102 mmol/L (98-107); POTASSIUM 3.7 mmol/L (3.5-5.1); SODIUM 138 mmol/L (136-145)
[2018-03-05 10:35] LABS: ALBUMIN 3.8 g/dl (3.4-5.0); ALK PHOS 103 U/L (45-117); ANION GAP 11 (8-16); BILIRUBIN,TOTAL 0.4 mg/dL (0.2-1.0); BLOOD UREA NITROGEN 20 mg/dL (7-18); CALCIUM 8.8 mg/dL (8.5-10.1); CO2 25 mmol/L (21-32); CREATININE 1.4 mg/dL (0.7-1.3); GLUCOSE,RANDOM 137 mg/dL (74-106); SGOT/AST 54 U/L (15-37); SGPT/ALT 68 U/L (12-78); TOT PROT 7.5 g/dl (6.4-8.2)
--- NOTE | 2018-03-05 10:47 | HP ---
Psychiatrist Admission - Data Date of interview: 03/05/18 Admission source: 6N Identifying data: This is the first 5N inpatient rehabilitation admission for this 42 year old P-R male father of 3, unemployed supported on SSI, currently homeless. Medical History: Asthma, Hypertension, Hep C Psychiatric History: Patient reports was diagnosed as schiaophrenia, bipolar, one psychiatric hospitalization at [facility] or 2 weeks in 2017, states he lost his mother and father and was feeling depressed, states he sees Dr.Rosa Menchaca at [facility] and was on Seroquel 300 mg po hs, Zyprexa 20 mg po hs, DEpakote 500 mg po hs, due to sedation and increased ammonis level his medications were lowered after re-evaluation by a psychiatrist, currently on Seroquil 50 mg po hs, Depakote 250 mg po hs and Zyprexa 5 mg po hs. Physical/Sexual Abuse/Trauma History: denies history of sexual,physical and verbal abuse. Vital Signs: Vital Signs - 24 hr 03/04/18 03/05/18 03/05/18 15:54 00:35 03:30 Temperature 97.1 F L Pulse Rate 110 H Respiratory 20 16 18 Rate Blood Pressure 162/86 03/05/18 07:07 Temperature 98.2 F Pulse Rate 87 Respiratory 18 Rate Blood Pressure 134/80 Allergies/Adverse Reactions: Allergies Allergy/AdvReac Type Severity Reaction Status Date / Time chicken derived Allergy Severe Rash Verified 03/04/18 15:54 No Known Drug Allergies Allergy Verified 03/04/18 15:54 Date of last physical exam: 02/25/18 Concur with the findings of this exam: Yes - Substance Abuse/Tx History Hx Alcohol Use: Yes (1 pint of vodka daily) Hx Substance Use: Yes Substance Use Type: Cocaine (8 bags daily), Heroin Hx Substance Use Treatment: Yes ([facility]) Mental Status Exam - Mental Status Exam Alert and Oriented to: Time, Place, Person Cognitive Function: Grossly Intact Patient Appearance: Well Groomed Mood: Anxious Affect: Appropriate, Mood Congruent Patient Behavior: Appropriate, Cooperative Speech Pattern: Clear, Appropriate Voice Loudness: Normal Thought Process: Intact, Goal Oriented Thought Disorder: Not Present Hallucinations: Denies Suicidal Ideation: Denies Homicidal Ideation: Denies Insight/Judgement: Good Sleep: Well Appetite: Good Muscle strength/Tone: Normal Gait/Station: Normal Psychiatric Findings - Problem List ([place] 1, 2,3) (1) Opioid dependence Current Visit: Yes Status: Acute (2) Alcohol dependence Current Visit: Yes Status: Acute (3) Schizoaffective disorder Current Visit: Yes Status: Acute (4) Cocaine dependence Current Visit: No Status: Active (5) Serum ammonia increased Current Visit: No Status: Acute - Initial Treatment Plan Initial Treatment Plan: will continue with low dosage of his medications Seroquel 50 mg po hs, Zyprexa 5mg po hs, depakote 250 mg po hs due to elevated ammonia level, monitor progress.
[2018-03-05] MEDS ORDERED: METHADONE HCL 10 MG TABLET PO ONE (15:01)
[2018-03-05] MEDS ORDERED: HYDROCHLOROTHIAZIDE 12.5 MG CAPSULE (FP) PO SCH (15:15)
--- NOTE | 2018-03-05 15:18 | PN ---
S Progress Note (SOAP) Subjective: C/o mild withdrawal symptoms. Also c/o swollen legs.C/o poor appetite Objective: 03/05/18 Has 1+ pitting edema BLE. peripheral pulses (+). Lower extremities non -tender with no increased warmth, erythema or cyanosis. Assessment: 03/05/18 Vital Signs Temperature 98.2 F 03/05/18 07:07 Pulse Rate 87 03/05/18 10:00 Respiratory Rate 18 03/05/18 10:00 Blood Pressure 127/80 03/05/18 10:00 O2 Sat by Pulse Oximetry (%) BLE edema. Opiate use disorder. Nutritional deficit. Plan: Increase methadone to 30 mg PO daily. Continue diazide.Encourage leg elevation. Ensure 120 mg PO BID
[2018-03-05] MEDS: DIVALPROEX SODIUM 250 MG TABLET E.C. PO SCH (21:44)
[2018-03-05] MEDS: THIAMINE HCL 100 MG TABLET (FP) PO SCH (21:44)
[2018-03-05] MEDS ORDERED: OLANZapine 5 MG TABLET PO SCH (22:00)
[2018-03-05] MEDS ORDERED: QUEtiapine FUMARATE 50 MG TABLET PO SCH (22:00)
[2018-03-06] MEDS: METHADONE HCL 10 MG TABLET PO SCH (06:46)
--- NOTE | 2018-03-06 08:46 | PN ---
[facility] Progress Note Note: [facility] alok diet, no ensur with elevated ammonia level and elevated bmi
[2018-03-06] MEDS: PRENATAL VITAMINS W/ FOLIC ACID TABLET (FP) PO SCH (10:30)
[2018-03-06] MEDS: amLODIPine BESYLATE 10 MG TABLET (FP) PO SCH (10:30)
[2018-03-06] MEDS: LACTULOSE 20 GM/30 ML UDC (FOR ORAL USE ONLY) PO SCH ×4 (10:30→21:32)
[2018-03-06] MEDS: TRIAMTERENE AND HCTZ - 37.5 MG/25 MG CAPSULE PO SCH (10:31)
--- NOTE | 2018-03-06 12:39 | PN ---
Psychiatric Progress Note Vital Signs: Vital Signs Period Temp Pulse Resp BP Sys/Benavides Pulse Ox Last 24 Hr 98.3 F 99 18-18 139/78 Date of Session: 03/06/18 Chief Complaint:: "I want the same dosage of my medications" HPI: Patient is addressing Cocaine, Opioid, Alcohol dependence Schizoaffective disorder ROS: WNL Current Medications: Active Medications Generic Name Dose Route Start Last Admin Trade Name Freq PRN Reason Stop Dose Admin Albuterol Sulfate 2 puff 03/04/18 16:07 Ventolin Hfa Inhaler - IH Q4H PRN ASTHMA Amlodipine Besylate 10 mg 03/04/18 17:15 03/06/18 10:30 Norvasc - PO 10 mg DAILY MAGED Administration Divalproex Sodium 250 mg 03/05/18 22:00 03/05/18 21:44 Depakote - PO 250 mg HS MAGED Administration Eucalyptus/Menthol/Phenol/Sorbitol 1 each 03/04/18 16:07 Cepastat Lozenge - MM Q4H PRN SORE THROAT Guaifenesin 10 ml 03/04/18 16:07 Robitussin Dm - PO Q6H PRN COUGH Hydroxyzine Pamoate 50 mg 03/04/18 16:07 03/04/18 22:06 Vistaril - PO 50 mg Q4H PRN Administration AGITATION Ibuprofen 400 mg 03/04/18 16:07 Motrin - PO Q6H PRN Pain Level 4-6 Lactulose 20 gm 03/04/18 18:00 03/06/18 10:30 Cephulac (Oral Use) PO 20 gm QID MAGED Administration Loperamide HCl 4 mg 03/04/18 16:07 Imodium - PO Q6H PRN DIARRHEA Melatonin 5 mg 03/04/18 22:00 Melatonin PO HS PRN INSOMNIA Methadone HCl 30 mg 03/06/18 06:00 03/06/18 06:46 Dolophine - PO 03/12/18 05:59 30 mg DAILY@0600 MAGED Administration Olanzapine 5 mg 03/05/18 22:00 03/05/18 21:44 Zyprexa - PO 5 mg HS MAGED Administration Multivit/Folic Acid/Iron 1 tab 03/05/18 10:00 03/06/18 10:30 Vitamins (Sjr) - PO 1 tab DAILY MAGED Administration Pseudoephedrine/Triprolidine 1 combo 03/04/18 16:07 Actifed - PO TID PRN NASAL CONGESTION Quetiapine Fumarate 50 mg 03/05/18 22:00 03/05/18 21:44 Seroquel - PO 50 mg HS MAGED Administration Thiamine HCl 100 mg 03/04/18 22:00 03/05/18 21:44 Vitamin B1 - PO 100 mg HS MAGED Administration Triamterene/HCTZ 1 cap 03/04/18 17:15 03/06/18 10:31 Dyazide 25/37.5mg PO 1 cap DAILY MAGED Administration Current Side Effect: No Lab tests ordered: No Lab tests reviewed: Yes Provider note:: Patient was seen today he reports that he wants to get back on his regular dosage, he seems to be adjusted well to the unit, reviewed, medication with the patient, discussed indications/properties, will increase Zyprexa 7.5 mg po hs,Seroquel 100 mg po hs, continue depakote 250 mg po hs, monitor progress as needed. Total face to face time:: 15 Mental Status Exam - Mental Status Exam Alert and Oriented to: Time, Place, Person Cognitive Function: Good Patient Appearance: Well Groomed Mood: Sad, Anxious Affect: Appropriate, Mood Congruent Patient Behavior: Appropriate, Cooperative Speech Pattern: Clear, Appropriate Voice Loudness: Normal Thought Process: Goal Oriented Thought Disorder: Not Present Hallucinations: None Suicidal Ideation: Denies Homicidal Ideation: Denies Insight/Judgement: Fair Sleep: Poorly, Difficulty falling asleep Appetite: Good Muscle strength/Tone: Normal Gait/Station: Normal Psychiatric Treatment Plan - Problem List (1) Opioid dependence Current Visit: Yes (2) Alcohol dependence Current Visit: Yes (3) Schizoaffective disorder Current Visit: Yes (4) Cocaine dependence Current Visit: No (5) Serum ammonia increased Current Visit: No
--- NOTE | 2018-03-06 15:51 | PN ---
[facility] Progress Note Note: Patient presents with c/o swelling of feet. Denies CP, SOB and Dizziness. Vital Signs Temperature 98.3 F 03/06/18 06:59 Pulse Rate 99 H 03/06/18 06:59 Respiratory Rate 18 03/06/18 06:59 Blood Pressure 139/78 03/06/18 06:59 O2 Sat by Pulse Oximetry (%) Laboratory Tests 03/05/18 03/05/18 03/05/18 08:35 08:35 08:36 WBC 9.7 RBC 4.22 Hgb 11.2 L Hct 34.2 L MCV 81.0 MCH 26.5 MCHC 32.8 RDW 16.6 H Plt Count 187 MPV 8.9 Neutrophils % 74.7 Lymphocytes % 20.2 Monocytes % 3.5 L Eosinophils % 1.3 Basophils % 0.3 Sodium 138 Potassium 3.7 Chloride 102 Carbon Dioxide 25 Anion Gap 11 BUN 20 H Creatinine 1.4 H Creat Clearance w eGFR 55.05 Random Glucose 137 H Calcium 8.8 Total Bilirubin 0.4 D AST 54 H D ALT 68 D Alkaline Phosphatase 103 Ammonia 53.99 H Total Protein 7.5 Albumin 3.8 OBJ: General: Patient alert and oriented. Car: S1S2 Resp: CTA BL Ext: +1 pitting edema. + ROM of BLEs. Ambulates without assistance A/P: Edema HTN Pt to continue current treatment with Dyazide as ordered, TK stockings and leg elevation. Pt explained plan of care and verbalized understanding. Continue to monitor clinically.
[2018-03-06] MEDS: IBUPROFEN 400 MG TABLET (FP) PO PRN (17:42)
[2018-03-06] MEDS: QUEtiapine FUMARATE 100 MG TABLET (FP) PO SCH (21:32)
[2018-03-06] MEDS: OLANZapine 7.5 MG TABLET PO SCH (21:32)
[2018-03-06] MEDS: DIVALPROEX SODIUM 250 MG TABLET E.C. PO SCH (21:32)
[2018-03-06] MEDS: THIAMINE HCL 100 MG TABLET (FP) PO SCH (21:32)
[2018-03-07] MEDS: METHADONE HCL 10 MG TABLET PO SCH (06:41)
[2018-03-07] MEDS: LACTULOSE 20 GM/30 ML UDC (FOR ORAL USE ONLY) PO SCH ×4 (09:52→21:27)
[2018-03-07] MEDS: TRIAMTERENE AND HCTZ - 37.5 MG/25 MG CAPSULE PO SCH (09:52)
[2018-03-07] MEDS: amLODIPine BESYLATE 10 MG TABLET (FP) PO SCH (09:52)
[2018-03-07] MEDS: PRENATAL VITAMINS W/ FOLIC ACID TABLET (FP) PO SCH (09:52)
[2018-03-07] MEDS: IBUPROFEN 400 MG TABLET (FP) PO PRN ×2 (10:48→17:12)
[2018-03-07] MEDS: OLANZapine 7.5 MG TABLET PO SCH (21:27)
[2018-03-07] MEDS: QUEtiapine FUMARATE 100 MG TABLET (FP) PO SCH (21:27)
[2018-03-07] MEDS: DIVALPROEX SODIUM 250 MG TABLET E.C. PO SCH (21:27)
[2018-03-07] MEDS: THIAMINE HCL 100 MG TABLET (FP) PO SCH (21:28)
[2018-03-08] MEDS: METHADONE HCL 10 MG TABLET PO SCH (06:43)
[2018-03-08] MEDS: PRENATAL VITAMINS W/ FOLIC ACID TABLET (FP) PO SCH (09:59)
[2018-03-08] MEDS: amLODIPine BESYLATE 10 MG TABLET (FP) PO SCH (09:59)
[2018-03-08] MEDS: TRIAMTERENE AND HCTZ - 37.5 MG/25 MG CAPSULE PO SCH (09:59)
[2018-03-08] MEDS: LACTULOSE 20 GM/30 ML UDC (FOR ORAL USE ONLY) PO SCH ×4 (10:00→21:25)
[2018-03-08] MEDS: IBUPROFEN 400 MG TABLET (FP) PO PRN (17:19)
[2018-03-08] MEDS: DIVALPROEX SODIUM 250 MG TABLET E.C. PO SCH (21:26)
[2018-03-08] MEDS: QUEtiapine FUMARATE 100 MG TABLET (FP) PO SCH (21:26)
[2018-03-08] MEDS: OLANZapine 7.5 MG TABLET PO SCH (21:26)
[2018-03-08] MEDS: THIAMINE HCL 100 MG TABLET (FP) PO SCH (21:26)
[2018-03-09] MEDS: METHADONE HCL 10 MG TABLET PO SCH (06:48)
[2018-03-09] MEDS: PRENATAL VITAMINS W/ FOLIC ACID TABLET (FP) PO SCH (10:37)
[2018-03-09] MEDS: amLODIPine BESYLATE 10 MG TABLET (FP) PO SCH (10:38)
[2018-03-09] MEDS: TRIAMTERENE AND HCTZ - 37.5 MG/25 MG CAPSULE PO SCH (10:38)
[2018-03-09] MEDS: LACTULOSE 20 GM/30 ML UDC (FOR ORAL USE ONLY) PO SCH ×4 (10:38→21:44)
--- NOTE | 2018-03-09 11:45 | PN ---
[facility] Progress Note Note: Patient complains of pain to left leg. Denies any recent injury to leg. States before being admitted he walked a lot and his legs would feel sore. Laboratory Tests 03/05/18 03/05/18 03/05/18 08:35 08:35 08:36 WBC 9.7 RBC 4.22 Hgb 11.2 L Hct 34.2 L MCV 81.0 MCH 26.5 MCHC 32.8 RDW 16.6 H Plt Count 187 MPV 8.9 Neutrophils % 74.7 Lymphocytes % 20.2 Monocytes % 3.5 L Eosinophils % 1.3 Basophils % 0.3 Sodium 138 Potassium 3.7 Chloride 102 Carbon Dioxide 25 Anion Gap 11 BUN 20 H Creatinine 1.4 H Creat Clearance w eGFR 55.05 Random Glucose 137 H Calcium 8.8 Total Bilirubin 0.4 D AST 54 H D ALT 68 D Alkaline Phosphatase 103 Ammonia 53.99 H Total Protein 7.5 Albumin 3.8 Vital Signs Temperature 98.3 F 03/08/18 07:01 Pulse Rate 81 03/09/18 07:09 Respiratory Rate 18 03/09/18 07:09 Blood Pressure 141/87 03/09/18 07:09 O2 Sat by Pulse Oximetry (%) Obj: Skin warm and dry. General: ambulating within unit with no device Ext: +2 edema to left leg. No deformities visible. A/P left leg pain Will check XRAY to left Tib/Fib, continue Dyazide for edema continue to monitor clinically
--- NOTE | 2018-03-09 14:26 | PN ---
Psychiatric Progress Note Vital Signs: Vital Signs Period Temp Pulse Resp BP Sys/Benavides Pulse Ox Last 24 Hr 81 18 141/87 Date of Session: 03/09/18 Chief Complaint:: "I need my medications" HPI: Patient is addressing Cocaine, Opioid, Alcohol dependence Schizoaffective disorder ROS: WNL Current Medications: Active Medications Generic Name Dose Route Start Last Admin Trade Name Freq PRN Reason Stop Dose Admin Albuterol Sulfate 2 puff 03/04/18 16:07 Ventolin Hfa Inhaler - IH Q4H PRN ASTHMA Amlodipine Besylate 10 mg 03/04/18 17:15 03/09/18 10:38 Norvasc - PO 10 mg DAILY MAGED Administration Divalproex Sodium 250 mg 03/05/18 22:00 03/08/18 21:26 Depakote - PO 250 mg HS MAGED Administration Eucalyptus/Menthol/Phenol/Sorbitol 1 each 03/04/18 16:07 Cepastat Lozenge - MM Q4H PRN SORE THROAT Guaifenesin 10 ml 03/04/18 16:07 Robitussin Dm - PO Q6H PRN COUGH Hydroxyzine Pamoate 50 mg 03/04/18 16:07 03/04/18 22:06 Vistaril - PO 50 mg Q4H PRN Administration AGITATION Ibuprofen 400 mg 03/04/18 16:07 03/08/18 17:19 Motrin - PO 400 mg Q6H PRN Administration Pain Level 4-6 Lactulose 20 gm 03/04/18 18:00 03/09/18 14:08 Cephulac (Oral Use) PO 20 gm QID MAGED Administration Loperamide HCl 4 mg 03/04/18 16:07 Imodium - PO Q6H PRN DIARRHEA Melatonin 5 mg 03/04/18 22:00 Melatonin PO HS PRN INSOMNIA Methadone HCl 30 mg 03/06/18 06:00 03/09/18 06:48 Dolophine - PO 03/12/18 05:59 30 mg DAILY@0600 MAGED Administration Olanzapine 7.5 mg 03/06/18 22:00 03/08/18 21:26 Zyprexa - PO 7.5 mg HS MAGED Administration Multivit/Folic Acid/Iron 1 tab 03/05/18 10:00 03/09/18 10:37 Vitamins (Sjr) - PO 1 tab DAILY MAGED Administration Pseudoephedrine/Triprolidine 1 combo 03/04/18 16:07 Actifed - PO TID PRN NASAL CONGESTION Quetiapine Fumarate 100 mg 03/06/18 22:00 03/08/18 21:26 Seroquel - PO 100 mg HS MAGED Administration Thiamine HCl 100 mg 03/04/18 22:00 03/08/18 21:26 Vitamin B1 - PO 100 mg HS MAGED Administration Triamterene/HCTZ 1 cap 03/04/18 17:15 03/09/18 10:38 Dyazide 25/37.5mg PO 1 cap DAILY MAGED Administration Current Side Effect: No Lab tests ordered: No Lab tests reviewed: Yes Provider note:: patient is anxious and reports he needs all his medications with the same dosage, reviewed his medications will increase Zyprexa 10 mg po hs ( was on 20 mg), Seroquel 150 mg po hs (was on 300 mg po hs), Depakote 500 mg po hs. Monitor progress as needed. Total face to face time:: 15 Mental Status Exam - Mental Status Exam Alert and Oriented to: Time, Place, Person Cognitive Function: Good Patient Appearance: Well Groomed Mood: Anxious Affect: Mood Congruent (patient is intrussive, today he came to my office 3 times) Patient Behavior: Guarded, Cooperative Speech Pattern: Appropriate Voice Loudness: Normal Thought Process: Goal Oriented Thought Disorder: Not Present Hallucinations: Denies Suicidal Ideation: Denies Homicidal Ideation: Denies Insight/Judgement: Fair Sleep: Fair Appetite: Fair Muscle strength/Tone: Normal Gait/Station: Normal Psychiatric Treatment Plan - Problem List (1) Opioid dependence Current Visit: Yes (2) Alcohol dependence Current Visit: Yes (3) Schizoaffective disorder Current Visit: Yes (4) Cocaine dependence Current Visit: No (5) Serum ammonia increased Current Visit: No
[2018-03-09] MEDS: DIVALPROEX SODIUM 500 MG TABLET E.C. PO SCH (21:43)
[2018-03-09] MEDS: QUEtiapine FUMARATE 50 MG TABLET PO SCH (21:43)
[2018-03-09] MEDS: OLANZapine 10 MG TABLET PO SCH (21:43)
[2018-03-09] MEDS: THIAMINE HCL 100 MG TABLET (FP) PO SCH (21:44)
[2018-03-10] MEDS: METHADONE HCL 10 MG TABLET PO SCH (06:23)
[2018-03-10] MEDS: LACTULOSE 20 GM/30 ML UDC (FOR ORAL USE ONLY) PO SCH ×4 (10:16→21:35)
[2018-03-10] MEDS: TRIAMTERENE AND HCTZ - 37.5 MG/25 MG CAPSULE PO SCH (10:17)
[2018-03-10] MEDS: PRENATAL VITAMINS W/ FOLIC ACID TABLET (FP) PO SCH (10:17)
[2018-03-10] MEDS: amLODIPine BESYLATE 10 MG TABLET (FP) PO SCH (10:17)
[2018-03-10] MEDS ORDERED: IBUPROFEN 400 MG TABLET (FP) PO PRN (15:39)
--- NOTE | 2018-03-10 15:44 | PN ---
S Progress Note Note: S: C/o continued swelling and pain in both feet. Pain is a "10" and pressure sharpness when walks or flexes feet. Compression stockings were too tight. Sates current ibuprofen dose does not relieve pain. staff of increased pain, swelling or tendernes Vital Signs Temperature 97.4 F L 03/10/18 06:44 Pulse Rate 103 H 03/10/18 10:00 Respiratory Rate 18 03/10/18 06:44 Blood Pressure 139/85 03/10/18 10:00 O2 Sat by Pulse Oximetry (%) O: A&Ox3. BLE taut edema toes to mid calf. No increased erythema or warmth. Cap refill less than 3 seconds. Bilateral pedal pulses (+). Tenderness upon palpation pedal areas. Laboratory Last Values WBC 9.7 K/mm3 (4.0-10.0) 03/05/18 08:35 RBC 4.22 M/mm3 (4.00-5.60) 03/05/18 08:35 Hgb 11.2 GM/dL (11.7-16.9) L 03/05/18 08:35 Hct 34.2 % (35.4-49) L 03/05/18 08:35 MCV 81.0 fl (80-96) 03/05/18 08:35 MCH 26.5 pg (25.7-33.7) 03/05/18 08:35 MCHC 32.8 g/dl (32.0-35.9) 03/05/18 08:35 RDW 16.6 % (11.9-15.9) H 03/05/18 08:35 Plt Count 187 K/MM3 (134-434) 03/05/18 08:35 MPV 8.9 fl (7.5-11.1) 03/05/18 08:35 Neutrophils % 74.7 % (42.8-82.8) 03/05/18 08:35 Lymphocytes % 20.2 % (8-40) 03/05/18 08:35 Monocytes % 3.5 % (3.8-10.2) L 03/05/18 08:35 Eosinophils % 1.3 % (0-4.5) 03/05/18 08:35 Basophils % 0.3 % (0-2.0) 03/05/18 08:35 Sodium 138 mmol/L (136-145) 03/05/18 08:35 Potassium 3.7 mmol/L (3.5-5.1) 03/05/18 08:35 Chloride 102 mmol/L (98-107) 03/05/18 08:35 Carbon Dioxide 25 mmol/L (21-32) 03/05/18 08:35 Anion Gap 11 (8-16) 03/05/18 08:35 BUN 20 mg/dL (7-18) H 03/05/18 08:35 Creatinine 1.4 mg/dL (0.7-1.3) H 03/05/18 08:35 Creat Clearance w eGFR 55.05 (>60) 03/05/18 08:35 Random Glucose 137 mg/dL (74-106) H 03/05/18 08:35 Calcium 8.8 mg/dL (8.5-10.1) 03/05/18 08:35 Total Bilirubin 0.4 mg/dL (0.2-1.0) D 03/05/18 08:35 AST 54 U/L (15-37) H D 03/05/18 08:35 ALT 68 U/L (12-78) D 03/05/18 08:35 Alkaline Phosphatase 103 U/L (45-117) 03/05/18 08:35 Ammonia 53.99 umol/L (11-32) H 03/05/18 08:36 Total Protein 7.5 g/dl (6.4-8.2) 03/05/18 08:35 Albumin 3.8 g/dl (3.4-5.0) 03/05/18 08:35 A: BLE edema. Pain. P: Encourage compliance w/ meds. Start farzad bandages BLE toes to mid-calf continuous during day. Remove HS. Notify staff of increased pain, swelling or redness of extremities. Increase ibuprofen dose.
[2018-03-10] MEDS: OLANZapine 10 MG TABLET PO SCH (21:34)
[2018-03-10] MEDS: DIVALPROEX SODIUM 500 MG TABLET E.C. PO SCH (21:34)
[2018-03-10] MEDS: QUEtiapine FUMARATE 50 MG TABLET PO SCH (21:34)
[2018-03-10] MEDS: THIAMINE HCL 100 MG TABLET (FP) PO SCH (21:35)
[2018-03-11] MEDS: METHADONE HCL 10 MG TABLET PO SCH (06:19)
[2018-03-11] MEDS: PRENATAL VITAMINS W/ FOLIC ACID TABLET (FP) PO SCH (10:10)
[2018-03-11] MEDS: amLODIPine BESYLATE 10 MG TABLET (FP) PO SCH (10:11)
[2018-03-11] MEDS: TRIAMTERENE AND HCTZ - 37.5 MG/25 MG CAPSULE PO SCH (10:11)
[2018-03-11] MEDS: LACTULOSE 20 GM/30 ML UDC (FOR ORAL USE ONLY) PO SCH ×4 (10:11→21:23)
[2018-03-11] MEDS: IBUPROFEN 600 MG TABLET (FP) PO PRN ×2 (11:45→22:47)
--- NOTE | 2018-03-11 11:45 | PN ---
Psychiatric Progress Note Vital Signs: Vital Signs Period Temp Pulse Resp BP Sys/Benavides Pulse Ox Last 24 Hr 98.3 F 106 18 153/94 Date of Session: 03/11/18 Chief Complaint:: "he is drowsy" HPI: Patient is addressing Cocaine, Opioid, Alcohol dependence Schizoaffective disorder. ROS: HTN, asthma, edema(swelling and pain in both feet) medically managed. Current Medications: Active Medications Generic Name Dose Route Start Last Admin Trade Name Freq PRN Reason Stop Dose Admin Albuterol Sulfate 2 puff 03/04/18 16:07 Ventolin Hfa Inhaler - IH Q4H PRN ASTHMA Amlodipine Besylate 10 mg 03/04/18 17:15 03/11/18 10:11 Norvasc - PO 10 mg DAILY MAGED Administration Divalproex Sodium 500 mg 03/09/18 22:00 03/10/18 21:34 Depakote - PO 500 mg HS MAGED Administration Eucalyptus/Menthol/Phenol/Sorbitol 1 each 03/04/18 16:07 Cepastat Lozenge - MM Q4H PRN SORE THROAT Guaifenesin 10 ml 03/04/18 16:07 Robitussin Dm - PO Q6H PRN COUGH Hydroxyzine Pamoate 50 mg 03/04/18 16:07 03/04/18 22:06 Vistaril - PO 50 mg Q4H PRN Administration AGITATION Ibuprofen 600 mg 03/10/18 15:39 03/11/18 02:49 Motrin - PO 600 mg Q6H PRN Administration Pain Level 4-6 Lactulose 20 gm 03/04/18 18:00 03/11/18 10:11 Cephulac (Oral Use) PO 20 gm QID MAGED Administration Loperamide HCl 4 mg 03/04/18 16:07 Imodium - PO Q6H PRN DIARRHEA Melatonin 5 mg 03/04/18 22:00 Melatonin PO HS PRN INSOMNIA Methadone HCl 30 mg 03/06/18 06:00 03/11/18 06:19 Dolophine - PO 03/12/18 05:59 30 mg DAILY@0600 MAGED Administration Olanzapine 10 mg 03/09/18 22:00 03/10/18 21:34 Zyprexa - PO 10 mg HS MAGED Administration Multivit/Folic Acid/Iron 1 tab 03/05/18 10:00 03/11/18 10:10 Vitamins (Sjr) - PO 1 tab DAILY MAGED Administration Pseudoephedrine/Triprolidine 1 combo 03/04/18 16:07 Actifed - PO TID PRN NASAL CONGESTION Quetiapine Fumarate 150 mg 03/09/18 22:00 03/10/18 21:34 Seroquel - PO 150 mg HS MAGED Administration Thiamine HCl 100 mg 03/04/18 22:00 03/10/18 21:35 Vitamin B1 - PO 100 mg HS MAGED Administration Triamterene/HCTZ 1 cap 03/04/18 17:15 03/11/18 10:11 Dyazide 25/37.5mg PO 1 cap DAILY MAGED Administration Current Side Effect: No Lab tests ordered: No Lab tests reviewed: Yes Provider note:: Patient was seen today , he was obseved by the staff being sedated during days time, patient was standing with his eyes closed, he opens his eyes when asked questions patient reported that he was not able to sleep last night and "that's why I feel sleepy), patient was encouraged to go to his bed. Reviewed medications, will desrease seroquel to 50 mg po hs and zyprexa to 5 mg po hs, continue to monitor progress. Total face to face time:: 25 Mental Status Exam - Mental Status Exam Alert and Oriented to: Time, Place, Person Cognitive Function: Good Patient Appearance: Well Groomed Mood: Sad Affect: Mood Congruent, Blunted Patient Behavior: Sedated, Fatigued Speech Pattern: Clear Voice Loudness: Normal Thought Disorder: Not Present Hallucinations: None Suicidal Ideation: None Homicidal Ideation: None Insight/Judgement: Good Sleep: Poorly Appetite: Good Muscle strength/Tone: Normal Gait/Station: Normal Psychiatric Treatment Plan - Problem List (1) Opioid dependence Current Visit: Yes (2) Alcohol dependence Current Visit: Yes (3) Schizoaffective disorder Current Visit: Yes (4) Cocaine dependence Current Visit: No (5) Serum ammonia increased Current Visit: No
[2018-03-11] MEDS: QUEtiapine FUMARATE 25 MG TABLET (FP) PO SCH (21:23)
[2018-03-11] MEDS: THIAMINE HCL 100 MG TABLET (FP) PO SCH (21:23)
[2018-03-11] MEDS: OLANZapine 5 MG TABLET PO SCH (21:23)
[2018-03-11] MEDS: DIVALPROEX SODIUM 500 MG TABLET E.C. PO SCH (21:23)
[2018-03-12] MEDS: METHADONE HCL 10 MG TABLET PO SCH (06:10)
[2018-03-12] MEDS: amLODIPine BESYLATE 10 MG TABLET (FP) PO SCH (10:58)
[2018-03-12] MEDS: LACTULOSE 20 GM/30 ML UDC (FOR ORAL USE ONLY) PO SCH ×4 (10:58→21:57)
[2018-03-12] MEDS: PRENATAL VITAMINS W/ FOLIC ACID TABLET (FP) PO SCH (10:58)
[2018-03-12] MEDS: TRIAMTERENE AND HCTZ - 37.5 MG/25 MG CAPSULE PO SCH (10:59)
--- NOTE | 2018-03-12 16:26 | PN ---
[facility] Progress Note (SOAP) Subjective: c/o insomnia Objective: 03/12/18 16:25 Vital Signs - 24 hr 03/12/18 03/12/18 03:30 06:51 Temperature 95.9 F L Pulse Rate 87 Respiratory 16 18 Rate Blood Pressure 140/82 Laboratory Tests 03/05/18 03/05/18 03/05/18 08:35 08:35 08:36 WBC 9.7 RBC 4.22 Hgb 11.2 L Hct 34.2 L MCV 81.0 MCH 26.5 MCHC 32.8 RDW 16.6 H Plt Count 187 MPV 8.9 Neutrophils % 74.7 Lymphocytes % 20.2 Monocytes % 3.5 L Eosinophils % 1.3 Basophils % 0.3 Sodium 138 Potassium 3.7 Chloride 102 Carbon Dioxide 25 Anion Gap 11 BUN 20 H Creatinine 1.4 H Creat Clearance w eGFR 55.05 Random Glucose 137 H Calcium 8.8 Total Bilirubin 0.4 D AST 54 H D ALT 68 D Alkaline Phosphatase 103 Ammonia 53.99 H Total Protein 7.5 Albumin 3.8 Assessment: 03/12/18 16:26 benadryl prn ordeered, nue repors sedation on prior sleep meds, no supplements as bmi too high.
--- NOTE | 2018-03-12 16:32 | PN ---
[facility] Progress Note Note: Patient c/o of pain and swelling to both lower extremities. Patient continues to not adhere to recommendations to use TK stockings and elevate lower extremities to improve swelling. Compare to yesterday, swelling has improved significantly. Vital Signs Temperature 95.9 F L 03/12/18 06:51 Pulse Rate 87 03/12/18 06:51 Respiratory Rate 18 03/12/18 06:51 Blood Pressure 140/82 03/12/18 06:51 O2 Sat by Pulse Oximetry (%) Laboratory Last Values WBC 9.7 K/mm3 (4.0-10.0) 03/05/18 08:35 RBC 4.22 M/mm3 (4.00-5.60) 03/05/18 08:35 Hgb 11.2 GM/dL (11.7-16.9) L 03/05/18 08:35 Hct 34.2 % (35.4-49) L 03/05/18 08:35 MCV 81.0 fl (80-96) 03/05/18 08:35 MCH 26.5 pg (25.7-33.7) 03/05/18 08:35 MCHC 32.8 g/dl (32.0-35.9) 03/05/18 08:35 RDW 16.6 % (11.9-15.9) H 03/05/18 08:35 Plt Count 187 K/MM3 (134-434) 03/05/18 08:35 MPV 8.9 fl (7.5-11.1) 03/05/18 08:35 Neutrophils % 74.7 % (42.8-82.8) 03/05/18 08:35 Lymphocytes % 20.2 % (8-40) 03/05/18 08:35 Monocytes % 3.5 % (3.8-10.2) L 03/05/18 08:35 Eosinophils % 1.3 % (0-4.5) 03/05/18 08:35 Basophils % 0.3 % (0-2.0) 03/05/18 08:35 Sodium 138 mmol/L (136-145) 03/05/18 08:35 Potassium 3.7 mmol/L (3.5-5.1) 03/05/18 08:35 Chloride 102 mmol/L (98-107) 03/05/18 08:35 Carbon Dioxide 25 mmol/L (21-32) 03/05/18 08:35 Anion Gap 11 (8-16) 03/05/18 08:35 BUN 20 mg/dL (7-18) H 03/05/18 08:35 Creatinine 1.4 mg/dL (0.7-1.3) H 03/05/18 08:35 Creat Clearance w eGFR 55.05 (>60) 03/05/18 08:35 Random Glucose 137 mg/dL (74-106) H 03/05/18 08:35 Calcium 8.8 mg/dL (8.5-10.1) 03/05/18 08:35 Total Bilirubin 0.4 mg/dL (0.2-1.0) D 03/05/18 08:35 AST 54 U/L (15-37) H D 03/05/18 08:35 ALT 68 U/L (12-78) D 03/05/18 08:35 Alkaline Phosphatase 103 U/L (45-117) 03/05/18 08:35 Ammonia 53.99 umol/L (11-32) H 03/05/18 08:36 Total Protein 7.5 g/dl (6.4-8.2) 03/05/18 08:35 Albumin 3.8 g/dl (3.4-5.0) 03/05/18 08:35 Patient AOx3, in no apparent distress Normal HR and Rhythm Lungs clean bilateral, no adventitious breath sounds Full ROM on all extremities Skin clean and intact, no lesions, or erythema, + edema on both legs, +2 non- pitting Plan: Continue current HTN meds and HCTZ Patient was educated on the importance to use TEDS and elevate lower extremities to improve symptoms Low sodium diet Continue to monitor
[2018-03-12] MEDS: IBUPROFEN 600 MG TABLET (FP) PO PRN (18:12)
[2018-03-12] MEDS: THIAMINE HCL 100 MG TABLET (FP) PO SCH (21:57)
[2018-03-12] MEDS: DIVALPROEX SODIUM 500 MG TABLET E.C. PO SCH (21:57)
[2018-03-12] MEDS: QUEtiapine FUMARATE 25 MG TABLET (FP) PO SCH (21:57)
[2018-03-12] MEDS: OLANZapine 5 MG TABLET PO SCH (21:57)
[2018-03-12] MEDS: diphenhydrAMINE HCL 25 MG CAPSULE (FP) PO PRN (21:57)
[2018-03-13] MEDS: METHADONE HCL 10 MG TABLET PO SCH (06:19)
[2018-03-13] MEDS: TRIAMTERENE AND HCTZ - 37.5 MG/25 MG CAPSULE PO SCH (10:01)
[2018-03-13] MEDS: LACTULOSE 20 GM/30 ML UDC (FOR ORAL USE ONLY) PO SCH ×4 (10:01→21:38)
[2018-03-13] MEDS: PRENATAL VITAMINS W/ FOLIC ACID TABLET (FP) PO SCH (10:02)
[2018-03-13] MEDS: amLODIPine BESYLATE 10 MG TABLET (FP) PO SCH (10:02)
[2018-03-13] MEDS: OLANZapine 5 MG TABLET PO SCH (21:38)
[2018-03-13] MEDS: THIAMINE HCL 100 MG TABLET (FP) PO SCH (21:38)
[2018-03-13] MEDS: QUEtiapine FUMARATE 25 MG TABLET (FP) PO SCH (21:38)
[2018-03-13] MEDS: IBUPROFEN 600 MG TABLET (FP) PO PRN (21:38)
[2018-03-13] MEDS: DIVALPROEX SODIUM 500 MG TABLET E.C. PO SCH (21:38)
[2018-03-14] MEDS: METHADONE HCL 10 MG TABLET PO SCH (06:24)
[2018-03-14] MEDS: LACTULOSE 20 GM/30 ML UDC (FOR ORAL USE ONLY) PO SCH ×4 (10:04→21:35)
[2018-03-14] MEDS: PRENATAL VITAMINS W/ FOLIC ACID TABLET (FP) PO SCH (10:05)
[2018-03-14] MEDS: TRIAMTERENE AND HCTZ - 37.5 MG/25 MG CAPSULE PO SCH (10:05)
[2018-03-14] MEDS: amLODIPine BESYLATE 10 MG TABLET (FP) PO SCH (10:05)
[2018-03-14] MEDS: IBUPROFEN 600 MG TABLET (FP) PO PRN (18:09)
[2018-03-14] MEDS: QUEtiapine FUMARATE 25 MG TABLET (FP) PO SCH (21:34)
[2018-03-14] MEDS: THIAMINE HCL 100 MG TABLET (FP) PO SCH (21:34)
[2018-03-14] MEDS: OLANZapine 5 MG TABLET PO SCH (21:34)
[2018-03-14] MEDS: DIVALPROEX SODIUM 500 MG TABLET E.C. PO SCH (21:34)
[2018-03-15] MEDS: METHADONE HCL 10 MG TABLET PO SCH (06:41)
[2018-03-15] MEDS: amLODIPine BESYLATE 10 MG TABLET (FP) PO SCH (10:01)
[2018-03-15] MEDS: PRENATAL VITAMINS W/ FOLIC ACID TABLET (FP) PO SCH (10:01)
[2018-03-15] MEDS: TRIAMTERENE AND HCTZ - 37.5 MG/25 MG CAPSULE PO SCH (10:01)
[2018-03-15] MEDS: LACTULOSE 20 GM/30 ML UDC (FOR ORAL USE ONLY) PO SCH ×4 (10:01→21:38)
[2018-03-15] MEDS: DIVALPROEX SODIUM 500 MG TABLET E.C. PO SCH (21:37)
[2018-03-15] MEDS: QUEtiapine FUMARATE 25 MG TABLET (FP) PO SCH (21:37)
[2018-03-15] MEDS: OLANZapine 5 MG TABLET PO SCH (21:37)
[2018-03-15] MEDS: THIAMINE HCL 100 MG TABLET (FP) PO SCH (21:37)
[2018-03-15] MEDS: IBUPROFEN 600 MG TABLET (FP) PO PRN (22:14)
[2018-03-16] MEDS: METHADONE HCL 10 MG TABLET PO SCH (06:35)
[2018-03-16] MEDS: amLODIPine BESYLATE 10 MG TABLET (FP) PO SCH (10:04)
[2018-03-16] MEDS: PRENATAL VITAMINS W/ FOLIC ACID TABLET (FP) PO SCH (10:04)
[2018-03-16] MEDS: TRIAMTERENE AND HCTZ - 37.5 MG/25 MG CAPSULE PO SCH (10:04)
[2018-03-16] MEDS: LACTULOSE 20 GM/30 ML UDC (FOR ORAL USE ONLY) PO SCH ×4 (10:04→21:52)
[2018-03-16] MEDS: IBUPROFEN 600 MG TABLET (FP) PO PRN (16:27)
[2018-03-16] MEDS: OLANZapine 5 MG TABLET PO SCH (21:51)
[2018-03-16] MEDS: QUEtiapine FUMARATE 25 MG TABLET (FP) PO SCH (21:51)
[2018-03-16] MEDS: DIVALPROEX SODIUM 500 MG TABLET E.C. PO SCH (21:51)
[2018-03-16] MEDS: THIAMINE HCL 100 MG TABLET (FP) PO SCH (21:52)
[2018-03-16] MEDS: diphenhydrAMINE HCL 25 MG CAPSULE (FP) PO PRN (21:54)
[2018-03-17] MEDS: IBUPROFEN 600 MG TABLET (FP) PO PRN ×3 (02:35→21:29)
[2018-03-17] MEDS: METHADONE HCL 10 MG TABLET PO SCH (06:23)
[2018-03-17] MEDS: amLODIPine BESYLATE 10 MG TABLET (FP) PO SCH (10:25)
[2018-03-17] MEDS: LACTULOSE 20 GM/30 ML UDC (FOR ORAL USE ONLY) PO SCH ×4 (10:25→21:29)
[2018-03-17] MEDS: PRENATAL VITAMINS W/ FOLIC ACID TABLET (FP) PO SCH (10:25)
[2018-03-17] MEDS: TRIAMTERENE AND HCTZ - 37.5 MG/25 MG CAPSULE PO SCH (10:25)
[2018-03-17] MEDS: THIAMINE HCL 100 MG TABLET (FP) PO SCH (21:29)
[2018-03-17] MEDS: OLANZapine 5 MG TABLET PO SCH (21:29)
[2018-03-17] MEDS: QUEtiapine FUMARATE 25 MG TABLET (FP) PO SCH (21:29)
[2018-03-17] MEDS: DIVALPROEX SODIUM 500 MG TABLET E.C. PO SCH (21:29)
[2018-03-17] MEDS: diphenhydrAMINE HCL 25 MG CAPSULE (FP) PO PRN (21:30)
[2018-03-18] MEDS: METHADONE HCL 10 MG TABLET PO SCH (06:26)
[2018-03-18] MEDS: IBUPROFEN 600 MG TABLET (FP) PO PRN (06:27)
[2018-03-18 06:39] VITALS: BP 141/75; PULSE 93; TEMP 97.6
[2018-03-18] MEDS: TRIAMTERENE AND HCTZ - 37.5 MG/25 MG CAPSULE PO SCH (09:46)
[2018-03-18] MEDS: LACTULOSE 20 GM/30 ML UDC (FOR ORAL USE ONLY) PO SCH (09:46)
[2018-03-18] MEDS: amLODIPine BESYLATE 10 MG TABLET (FP) PO SCH (09:47)
[2018-03-18] MEDS: PRENATAL VITAMINS W/ FOLIC ACID TABLET (FP) PO SCH (09:47)
--- NOTE | 2018-03-18 10:21 | PN ---
Psychiatric Progress Note Vital Signs: Vital Signs Period Temp Pulse Resp BP Sys/Benavides Pulse Ox Last 24 Hr 97.6 F 93 18 141/75 Date of Session: 03/18/18 Chief Complaint:: discharge visit HPI: Patient is addressing Cocaine, Opioid, Alcohol dependence Schizoaffective disorder. ROS: HTN, asthma, edema(swelling and pain in both feet) medically managed. Current Medications: Active Medications Generic Name Dose Route Start Last Admin Trade Name Freq PRN Reason Stop Dose Admin Albuterol Sulfate 2 puff 03/04/18 16:07 Ventolin Hfa Inhaler - IH Q4H PRN ASTHMA Amlodipine Besylate 10 mg 03/04/18 17:15 03/18/18 09:47 Norvasc - PO 10 mg DAILY MAGED Administration Diphenhydramine HCl 50 mg 03/12/18 16:25 03/17/18 21:30 Benadryl - PO 50 mg HS PRN Administration INSOMNIA Divalproex Sodium 500 mg 03/09/18 22:00 03/17/18 21:29 Depakote - PO 500 mg HS MAGED Administration Eucalyptus/Menthol/Phenol/Sorbitol 1 each 03/04/18 16:07 Cepastat Lozenge - MM Q4H PRN SORE THROAT Guaifenesin 10 ml 03/04/18 16:07 Robitussin Dm - PO Q6H PRN COUGH Hydroxyzine Pamoate 50 mg 03/04/18 16:07 03/04/18 22:06 Vistaril - PO 50 mg Q4H PRN Administration AGITATION Ibuprofen 600 mg 03/11/18 11:43 03/18/18 06:27 Motrin - PO 600 mg Q6H PRN Administration Pain Level 4-6 Lactulose 20 gm 03/04/18 18:00 03/18/18 09:46 Cephulac (Oral Use) PO 20 gm QID MAGED Administration Loperamide HCl 4 mg 03/04/18 16:07 Imodium - PO Q6H PRN DIARRHEA Melatonin 5 mg 03/04/18 22:00 Melatonin PO HS PRN INSOMNIA Methadone HCl 30 mg 03/12/18 06:00 03/18/18 06:26 Dolophine - PO 03/19/18 05:59 30 mg DAILY@0600 MAGED Administration Olanzapine 5 mg 03/11/18 22:00 03/17/18 21:29 Zyprexa - PO 5 mg HS MAGED Administration Multivit/Folic Acid/Iron 1 tab 03/05/18 10:00 03/18/18 09:47 Vitamins (Sjr) - PO 1 tab DAILY MAGED Administration Pseudoephedrine/Triprolidine 1 combo 03/04/18 16:07 Actifed - PO TID PRN NASAL CONGESTION Quetiapine Fumarate 25 mg 03/11/18 22:00 03/17/18 21:29 Seroquel - PO 25 mg HS MAGED Administration Thiamine HCl 100 mg 03/04/18 22:00 03/17/18 21:29 Vitamin B1 - PO 100 mg HS MAGED Administration Triamterene/HCTZ 1 cap 03/04/18 17:15 03/18/18 09:46 Dyazide 25/37.5mg PO 1 cap DAILY MAGED Administration Current Side Effect: No Lab tests ordered: No Lab tests reviewed: Yes Provider note:: Patient completed this program today and has met his treatment goals. He will continue to asddressed his issues on inpatient basis at [facility]. During the course of his treatment, medications were adjusted due to patient's sedation , he reports that current medications/dosage Seroquel 25 mg po hs, Zyprexa 5 mg po hs and Depakote 500 mg po hs help to cope with mood instability, depression, insomnia. Scrips for 30 days provided. Patient identifies areas of difficulties,behaviors which contribute to relapse.Support system,coping skills utilization been discussed as well. patient is stable for discharge today. Total face to face time:: 35 Mental Status Exam - Mental Status Exam Alert and Oriented to: Time, Place, Person Cognitive Function: Good Patient Appearance: Well Groomed Affect: Appropriate, Mood Congruent Patient Behavior: Appropriate, Cooperative Speech Pattern: Clear, Appropriate Voice Loudness: Normal Thought Process: Intact, Goal Oriented Thought Disorder: Not Present Hallucinations: Denies Suicidal Ideation: Denies Homicidal Ideation: Denies Insight/Judgement: Fair Sleep: Fair Appetite: Good Muscle strength/Tone: Normal Gait/Station: Normal Psychiatric Treatment Plan - Problem List (1) Opioid dependence Current Visit: Yes (2) Alcohol dependence Current Visit: Yes (3) Schizoaffective disorder Current Visit: Yes (4) Cocaine dependence Current Visit: No (5) Serum ammonia increased Current Visit: No
== END 2018-03-18 13:00 | disposition home or self-care (01) | DRG 772 ==
LOC: YASAS 14:49 → Y5N 16:36
PROVIDERS: ADMIT Psychiatry & Neurology Psychiatry; ATTEND Psychiatry & Neurology Psychiatry
PROC: HZ42ZZZ Group Counseling for Substance Abuse Treatment, Cognitive-Behavioral (ICD-10-PCS; principal; 2018-03-04)
DX: F11.20 Opioid dependence, uncomplicated (principal); F10.20 Alcohol dependence, uncomplicated; F14.20 Cocaine dependence, uncomplicated; F25.9 Schizoaffective disorder, unspecified; I10 Essential (primary) hypertension; J45.909 Unspecified asthma, uncomplicated; E72.20 Disorder of urea cycle metabolism, unspecified; R60.0 Localized edema
CPT/HCPCS: 36415; 73590-TC-LT-FY; 80053; 82140; 85025